=== PATIENT | female | born 1955 | race Caucasian/White ===

== ENCOUNTER 2018-03-10 15:54 | Emergency (ER) | payer OTHER ==
[2018-03-10 16:14] VITALS: BP 130/77; PULSE 68; TEMP 98.2; BMI 29.0
--- NOTE | 2018-03-10 19:24 | PDOC ---
History of Present Illness - General Chief Complaint: Injury Stated Complaint: FALL Time Seen by Provider: 03/10/18 19:11 History Source: Patient - History of Present Illness Initial Comments: 03/10/18 20:23 62 year old female 62-year-old female Currently living in assisted care facility reports that she lost balance and fell hit the buttocks complaining of right-sided rib pain and lower back pain. Patient has a history of CVA with left sided weakness. Denies fever/ chills dizziness, SOB, chest pain, diaphoresis, NV, abdominal pain Past medical history as listed Past History - Past Medical History Allergies/Adverse Reactions: Allergies Allergy/AdvReac Type Severity Reaction Status Date / Time Penicillins Allergy Verified 12/25/15 19:56 shellfish derived Allergy Verified 12/25/15 19:56 strawberry Allergy Verified 12/25/15 19:56 Home Medications: Ambulatory Orders Acetaminophen [Mapap] 500 mg PO BID PRN 03/10/18 Albuterol Sulfate [Proair Hfa] 2 puff IH QID PRN 03/10/18 Apixaban [Eliquis -] 2.5 mg PO BID 03/10/18 Ascorbic Acid [Vitamin C -] 500 mg PO DAILY 03/10/18 Atorvastatin Ca [Lipitor] 10 mg PO HS 03/10/18 Calcium Carbonate [Super Calcium] 600 mg PO BID 03/10/18 Loratadine 10 mg PO DAILY 03/10/18 Melatonin 3 mg PO HS 03/10/18 Metoprolol Tartrate 25 mg PO DAILY 03/10/18 Mometasone Furoate [Asmanex 110Mcg -] 2 inh IH DAILY 03/10/18 Olopatadine HCl 2.5 ml OP DAILY 03/10/18 Omeprazole 40 mg PO DAILY 03/10/18 Paroxetine HCl 30 mg PO DAILY 03/10/18 Promethazine HCl [Phenergan Liquid -] 5 ml PO DAILY PRN 03/10/18 Asthma: Yes CVA: Yes (left arm paralysis, left leg weakness) COPD: No HTN: Yes - Immunization History Immunization Up to Date: Yes - Suicide/Smoking/Psychosocial Hx Smoking History: Former smoker Have you smoked in the past 12 months: No If you are a former smoker, when did you quit?: 1999 Information on smoking cessation initiated: No Hx Alcohol Use: No Drug/Substance Use Hx: No Substance Use Type: None Review of Systems - Review of Systems Able to Perform ROS?: Yes Is the patient limited Arabic proficient: No Constitutional: No: Symptoms Reported, See HPI, Chills, Diaphoresis, Fever, Loss of Appetite, Malaise, Night Sweats, Weakness, Weight Stable, Unintentional Wgt. Loss, Unexplained wgt Loss, Other Musculoskeletal: Yes: Back Pain *Physical Exam - Vital Signs Last Vital Signs Temp Pulse Resp BP Pulse Ox 98.2 F 68 20 130/77 94 L 03/10/18 16:11 03/10/18 16:11 03/10/18 16:11 03/10/18 16:11 03/10/18 16:11 - Physical Exam General Appearance: Yes: Appropriately Dressed Respiratory/Chest: positive: Lungs Clear, Normal Breath Sounds, Other (right posterior chest/ rib tenderness) Gastrointestinal/Abdominal: positive: Normal Bowel Sounds, Soft Musculoskeletal: positive: Normal Inspection Extremity: positive: Normal Inspection, Normal Range of Motion Integumentary: positive: Normal Color, Dry, Warm Neurologic: positive: Fully Oriented, Alert, Normal Mood/Affect ED Treatment Course - LABORATORY CBC & Chemistry Diagram: 03/10/18 23:30 03/10/18 23:30 Progress Note - Progress Note Progress Note: A: back pain P: xray: no acute finding. official read pending cbc cmp troponin EKG will d/c home. patient has a home health aide 24 hours in the facility. *DC/Admit/Observation/Transfer Diagnosis at time of Disposition: Fall in elderly patient, Rib pain on right side Contusion, buttock Qualifiers: Encounter type: initial encounter Qualified Code(s): S30.0XXA - Contusion of lower back and pelvis, initial encounter - Discharge Dispostion Disposition: HOME - Referrals - Patient Instructions Printed Discharge Instructions: How to Prevent Falls Additional Instructions: follow up with your doctor. you may take tylenol for pain. Additional Instructions: * Please call your personal physician to report your Emergency Department visit and to report your progress, if any. * If there is no improvement in symptoms in 2 days call your physician. * Return to the Emergency Department for any worsening symptoms. - Post Discharge Activity
--- NOTE | 2018-03-10 19:47 | PDOC ---
*Physical Exam - Vital Signs Last Vital Signs Temp Pulse Resp BP Pulse Ox 98.2 F 68 20 130/77 94 L 03/10/18 16:11 03/10/18 16:11 03/10/18 16:11 03/10/18 16:11 03/10/18 16:11 ED Treatment Course - LABORATORY CBC & Chemistry Diagram: 03/10/18 23:30 03/10/18 23:30 Medical Decision Making - Medical Decision Making 03/10/18 19:46 agree with care from [facility] *DC/Admit/Observation/Transfer Diagnosis at time of Disposition: Fall in elderly patient, Rib pain on right side, Contusion, buttock - Discharge Dispostion Disposition: HOME Condition at time of disposition: Good - Referrals - Patient Instructions Printed Discharge Instructions: How to Prevent Falls Additional Instructions: follow up with your doctor. you may take tylenol for pain. Additional Instructions: * Please call your personal physician to report your Emergency Department visit and to report your progress, if any. * If there is no improvement in symptoms in 2 days call your physician. * Return to the Emergency Department for any worsening symptoms. - Post Discharge Activity
[2018-03-10 23:36] LABS: BASO % 0.5 % (0-2.0); EOS % 2.7 % (0-4.5); HEMATOCRIT 36.9 % (32.4-45.2); HEMOGLOBIN 12.7 GM/dL (10.7-15.3); MCH 31.2 pg (25.7-33.7); MCHC 34.5 g/dl (32.0-36.0); MEAN CELL VOLUME 90.2 fl (80-96); MEAN PLT VOLUME 8.4 fl (7.5-11.1); MONO % 8.3 % (3.8-10.2); NEUT % 57.5 % (42.8-82.8); PLATELET COUNT 218 K/MM3 (134-434); RBC 4.09 M/mm3 (3.60-5.2); RDW 12.6 % (11.6-15.6); WHITE BLOOD COUNT 6.3 K/mm3 (4.0-10.0)
[2018-03-10 23:56] LABS: ANION GAP 7 (8-16); BILIRUBIN,TOTAL 0.4 mg/dL (0.2-1.0); BLOOD UREA NITROGEN 18 mg/dL (7-18); CALCIUM 8.9 mg/dL (8.5-10.1); CHLORIDE 105 mmol/L (98-107); CO2 29 mmol/L (21-32); CREATININE 0.6 mg/dL (0.55-1.02); GLUCOSE,RANDOM 94 mg/dL (74-106); POTASSIUM 3.9 mmol/L (3.5-5.1); SGOT/AST 14 U/L (15-37); SGPT/ALT 19 U/L (12-78); SODIUM 141 mmol/L (136-145); TOT PROT 7.2 g/dl (6.4-8.2)
[2018-03-10 23:59] LABS: ALK PHOS 71 U/L (45-117)
[2018-03-11] MEDS ORDERED: ACETAMINOPHEN 325 MG TABLET (FP) PO ONE (00:31)
[2018-03-11] MEDS ORDERED: ACETAMINOPHEN 325 MG TABLET (FP) ONE (00:44)
--- NOTE | 2018-03-11 11:22 | EKG ---
Test Reason : Blood Pressure : / mmHG Vent. Rate : 075 BPM Atrial Rate : 075 BPM P-R Int : 138 ms QRS Dur : 082 ms QT Int : 398 ms P-R-T Axes : 041 022 034 degrees QTc Int : 444 ms NORMAL SINUS RHYTHM SEPTAL INFARCT , AGE UNDETERMINED ABNORMAL ECG WHEN COMPARED WITH ECG OF 25-DEC-2015 20:14, SEPTAL INFARCT IS NOW PRESENT Confirmed by NATHAN AGARWAL MD ([id number]) on 03/11/2018 11:21:33 AM Referred By: Confirmed By:NATHAN AGARWAL MD
== END 2018-03-11 02:35 | disposition home or self-care (01) ==
LOC: JER 15:54
DX: S30.0XXA Contusion of lower back and pelvis, initial encounter (principal); R07.81 Pleurodynia; Z86.73 Personal history of transient ischemic attack (TIA), and cerebral infarction without residual deficits; J45.909 Unspecified asthma, uncomplicated; Z87.891 Personal history of nicotine dependence; I10 Essential (primary) hypertension; W18.39XA Other fall on same level, initial encounter; Y93.89 Activity, other specified; Y92.9 Unspecified place or not applicable
CPT/HCPCS: 36415; 71045-TC-FY; 71101-TC-RT-FY; 72100-TC-FY; 73523-TC-FY; 80053; 84484; 85025; 93005; 93010; 99282-25

== ENCOUNTER 2018-08-28 19:02 | Emergency (ER) | payer OTHER ==
[2018-08-28 19:16] VITALS: BMI 31.1
--- NOTE | 2018-08-28 19:23 | PDOC ---
History of Present Illness - General Chief Complaint: Toothache Stated Complaint: pain History Source: Patient - History of Present Illness Initial Comments: The patient is a 63F who presents for evaluation of R facial swelling for 1 day. The patient states that she first noticed the swelling yesterday which has since progressed. She now reports overlying redness, pain, and subjective fevers. She took Tylenol at home with little relief. She denies ever having had this before. She denies injury or trauma to her face. She denies changes in vision, pain or difficulty swallowing, chest pain, trouble breathing, abdominal pain, N/V/C/D, or changes in sensation. 08/28/18 19:23 Past History - Past Medical History Allergies/Adverse Reactions: Allergies Allergy/AdvReac Type Severity Reaction Status Date / Time Penicillins Allergy Verified 08/28/18 19:14 shellfish derived Allergy Verified 08/28/18 19:14 strawberry Allergy Verified 08/28/18 19:14 Home Medications: Ambulatory Orders Acetaminophen [Mapap] 500 mg PO TID PRN 03/10/18 Apixaban [Eliquis -] 2.5 mg PO BID 03/10/18 Ascorbic Acid [Vitamin C -] 500 mg PO DAILY 03/10/18 Atorvastatin Ca [Lipitor] 10 mg PO HS 03/10/18 Calcium Carbonate [Super Calcium] 600 mg PO BID 03/10/18 Loratadine 10 mg PO DAILY 03/10/18 Melatonin 3 mg PO HS 03/10/18 Metoprolol Tartrate 25 mg PO DAILY 03/10/18 Olopatadine HCl 2.5 ml OP DAILY 03/10/18 Omeprazole 40 mg PO DAILY 03/10/18 Paroxetine HCl 30 mg PO DAILY 03/10/18 Promethazine HCl [Phenergan Liquid -] 5 ml PO DAILY PRN 03/10/18 Albuterol Sulfate Inhaler - [Ventolin Hfa Inhaler -] 1 - 2 inh PO QID PRN Mometasone Furoate 17 gm NS DAILY 08/28/18 Asthma: Yes CVA: Yes (left arm paralysis, left leg weakness) COPD: No GI Disorders: (Gerd) HTN: Yes - Immunization History Immunization Up to Date: Yes - Suicide/Smoking/Psychosocial Hx Smoking History: Former smoker Have you smoked in the past 12 months: No If you are a former smoker, when did you quit?: 1999 Information on smoking cessation initiated: No Hx Alcohol Use: No Drug/Substance Use Hx: No Substance Use Type: None Review of Systems - Review of Systems Able to Perform ROS?: Yes Comments:: GENERAL/CONSTITUTIONAL: +subjective fever. No weakness HEAD, EYES, EARS, NOSE AND THROAT: No change in vision. No ear pain or discharge CARDIOVASCULAR: No chest pain or shortness of breath RESPIRATORY: No cough, wheezing, or hemoptysis GASTROINTESTINAL: No nausea, vomiting, diarrhea or constipation GENITOURINARY: No dysuria, frequency, or change in urination MUSCULOSKELETAL: No joint or muscle swelling or pain. No neck or back pain NEUROLOGIC: No headache, vertigo, loss of consciousness, or change in strength/ sensation ENDOCRINE: No increased thirst. No abnormal weight change HEMATOLOGIC/LYMPHATIC: +Eliquis 2/2 hx of stroke ALLERGIC/IMMUNOLOGIC: No hives or skin allergy 08/28/18 23:22 Is the patient limited Greek proficient: No *Physical Exam - Vital Signs Last Vital Signs Temp Pulse Resp BP Pulse Ox 99.3 F 83 20 153/84 97 08/28/18 19:05 08/28/18 19:05 08/28/18 19:05 08/28/18 19:05 08/28/18 19:05 - Physical Exam Comments: GENERAL: Awake, alert, and fully oriented, in no acute distress HEAD: R mandibular abscess with overlying erythema, no skin defect or drainage; TTP and fluctuance palpated EYES: PERRL, EOMI, sclera anicteric, conjunctiva clear ENT: Hearing grossly normal, nares patent, oropharynx clear without exudates. Intra-oral swelling noted over buccal mucosa on R. No intra-oral purulence or defect observed NECK: Normal ROM, supple LUNGS: Mild wheeze heard and patient appears w/ mild increased work of breathing s/p short movements; otherwise saturating well on room air, no cough HEART:Regular rate and rhythm, normal S1 and S2, no murmurs appreciated, peripheral pulses normal and equal bilaterally ABDOMEN: Soft, nontender, normoactive bowel sounds. No guarding, no rebound EXTREMITIES : LUE contracture at elbow and wrist; L sided hemiparesis as residual deficit from stroke. Per patient at baseline. NEUROLOGICAL: Cranial nerves II through XII grossly intact. Normal speech; L sided decreased sensation (baseline per pt) 08/29/18 07:04 ED Treatment Course - LABORATORY CBC & Chemistry Diagram: 08/28/18 20:35 08/28/18 20:35 Medical Decision Making - Medical Decision Making The patient is a 63F w/ a history of CVA (L hemiparesis), HTN, and HLD who presents for evaluation of R facial swelling concerning for glandular inflammation v abscess ED Course CMP, CBC, Lactate, Blood Cx CT Face and Neck POCUS significant for fluid collection over R mandible v glandular fluid collection Clindamycin 600mg IV once Patient not able to cooperate w/ CT study Will give Ativan 1mg IV once CT face significant for submandibular abscess -Will transfer to [facility] for OMFS evaluation for drainage of abscess -Transfer accepted by Dr. eJf Ceron; Resident taking sign out: Mukesh Ch Transfer discussed with patient who verbalized understanding for reasoning and need for transfer Transfer to be arranged by [facility] Dispo: Transferred 08/28/18 23:36 *DC/Admit/Observation/Transfer Diagnosis at time of Disposition: Facial abscess - Discharge Dispostion Disposition: TRANSFER ACUTE CARE/OTHER HOSP Condition at time of disposition: Good Decision to Admit order: No - Referrals - Patient Instructions - Post Discharge Activity
--- NOTE | 2018-08-28 19:53 | PDOC ---
Attending Attestation - Resident Resident Name: Perfecto Charles - ED Attending Attestation I have performed the following: I have examined & evaluated the patient, The case was reviewed & discussed with the resident, I agree w/resident's findings & plan
[2018-08-28 20:52] LABS: HEMOGLOBIN 12.9 GM/dL (10.7-15.3); MCH 30.6 pg (25.7-33.7); MEAN CELL VOLUME 89.9 fl (80-96); MEAN PLT VOLUME 8.2 fl (7.5-11.1); PLATELET COUNT 259 K/MM3 (134-434); RBC 4.22 M/mm3 (3.60-5.2); RDW 12.5 % (11.6-15.6)
[2018-08-28 21:37] LABS: ALK PHOS 91 U/L (45-117); ANION GAP 6 MMOL/L (8-16); BILIRUBIN,TOTAL 0.4 mg/dL (0.2-1); BLOOD UREA NITROGEN 17 mg/dL (7-18); CALCIUM 9.3 mg/dL (8.5-10.1); CHLORIDE 104 mmol/L (98-107); CO2 30 mmol/L (21-32); CREATININE 0.6 mg/dL (0.55-1.3); GLUCOSE,RANDOM 105 mg/dL (74-106); POTASSIUM 4.3 mmol/L (3.5-5.1); SGOT/AST 24 U/L (15-37); SGPT/ALT 27 U/L (13-61); SODIUM 140 mmol/L (136-145); TOT PROT 7.4 g/dl (6.4-8.2)
--- NOTE | 2018-08-28 21:37 | PDOC ---
Attending Attestation - Resident Resident Name: Perfecto Charles - ED Attending Attestation I have performed the following: I have examined & evaluated the patient, The case was reviewed & discussed with the resident, I agree w/resident's findings & plan, Exceptions are as noted - HPI HPI: 08/28/18 21:41 63 yo F with h/o hld, htn, prior cva with residual left sided hemiparesis here today with right sided lower jaw swelling. noted a little swelling yesterday. denies, f/does report subjective chills. took tylenol at 4 pm. no recent dental procedure. no h/o stones, no difficulty swallowing. no other complaints. no cough, no sob. - Physicial Exam PE: 08/28/18 21:43 awake alert . right lower mandible with significant submandibular swelling, erythema and warmth. palpable induration buccal side anterilr lateral gum line surround right lower posterior molar. no trismus. anterior lower lip swelling. no stridor. lungs clear bilateral. heart rrr no mrg. abd soft nt. eryhtema to skin right lower jaw line. - Medical Decision Making 08/28/18 21:44 differential sialoadenitis, abcess, peridontal abscess. swelling does not cross midline however significant lip swelling . will treat with iv clindamycin , ct jaw mandible neck. pt unable to have iv contrast. septic labs workup. pain control as needed. will possible require transfer for i & D abscess. 08/29/18 00:21 pt unable to stay still for ct scan. given 1 mg ativan to aid with ct scan.
[2018-08-28] MEDS ORDERED: ALBUTEROL SO4 2.5/IPRATROPIUM 0.5 INH SOL 3 ML VIAL.NEB. NEB ONE ×2 (22:34→22:39)
[2018-08-28] MEDS ORDERED: CLINDAMYCIN 600MG PREMIX IVPB 600 MG/50 ML BAG IVPB ONE ×2 (23:41→23:50)
[2018-08-28] MEDS ORDERED: LORazepam 2 MG/ML SDV VIAL ONE (23:50)
[2018-08-29 02:39] VITALS: BP 133/69; PULSE 102; TEMP 100.5
== END 2018-08-29 02:40 | disposition short-term general hospital (02) ==
LOC: JER 19:02
PROC: 3E0F7GC Introduction of Other Therapeutic Substance into Respiratory Tract, Via Natural or Artificial Opening (ICD-10-PCS; principal; 2018-08-28)
PROC: 3E03329 Introduction of Other Anti-infective into Peripheral Vein, Percutaneous Approach (ICD-10-PCS; 2018-08-28)
PROC: 3E033NZ Introduction of Analgesics, Hypnotics, Sedatives into Peripheral Vein, Percutaneous Approach (ICD-10-PCS; 2018-08-28)
DX: L02.01 Cutaneous abscess of face (principal); I10 Essential (primary) hypertension; K21.9 Gastro-esophageal reflux disease without esophagitis; I69.854 Hemiplegia and hemiparesis following other cerebrovascular disease affecting left non-dominant side; Z79.01 Long term (current) use of anticoagulants
CPT/HCPCS: 36415; 70486-TC; 70490-TC; 80053; 83605; 85027; 87040; 94640; 96365; 96375; 99283-25; J7620

== ENCOUNTER 2019-03-14 08:45 | Emergency (ER) | payer OTHER ==
[2019-03-14 08:54] VITALS: BP 139/103; PULSE 88; TEMP 97.7; BMI 314.5
--- NOTE | 2019-03-14 09:03 | PDOC ---
History of Present Illness - General Stated Complaint: FALL Time Seen by Provider: 03/14/19 08:52 History Source: Patient - History of Present Illness Initial Comments: 03/14/19 09:06 The patient is a 63 year old female with a PMH of CVA (s/p R sided hemiparesis) , HTN and Asthma () who was BIBEMS after a fall this morning @ 7:20 a.m. Patient states she was sitting up on the side of the bed attempting to put on her socks when she fell forward hitting her head. Denies any LOC, pre fall chest pain, shortness of breath, lightheadedness, palpitations. States she screamed and an aide came within 1-2 minutes however she remained on the ground until EMS arrived about 30 minutes later. Allergy: Penicillin Past History - Past Medical History Allergies/Adverse Reactions: Allergies Allergy/AdvReac Type Severity Reaction Status Date / Time Penicillins Allergy Verified 03/14/19 08:52 shellfish derived Allergy Verified 03/14/19 08:52 strawberry Allergy Verified 03/14/19 08:52 Home Medications: Ambulatory Orders Acetaminophen [Mapap] 500 mg PO TID PRN 03/10/18 Apixaban [Eliquis -] 2.5 mg PO BID 03/10/18 Ascorbic Acid [Vitamin C -] 500 mg PO DAILY 03/10/18 Atorvastatin Ca [Lipitor] 10 mg PO HS 03/10/18 Calcium Carbonate [Super Calcium] 600 mg PO BID 03/10/18 Loratadine 10 mg PO DAILY 03/10/18 Melatonin 3 mg PO HS 03/10/18 Metoprolol Tartrate 25 mg PO DAILY 03/10/18 Olopatadine HCl 2.5 ml OP DAILY 03/10/18 Omeprazole 40 mg PO DAILY 03/10/18 Paroxetine HCl 30 mg PO DAILY 03/10/18 Promethazine HCl [Phenergan Liquid -] 5 ml PO DAILY PRN 03/10/18 Albuterol Sulfate Inhaler - [Ventolin Hfa Inhaler -] 1 - 2 inh PO QID PRN Mometasone Furoate 17 gm NS DAILY 08/28/18 Ferrous Sulfate [Iron] 325 mg PO DAILY 03/14/19 Asthma: Yes CVA: Yes (left arm paralysis, left leg weakness) COPD: No GI Disorders: (Gerd) HTN: Yes - Immunization History Immunization Up to Date: Yes - Suicide/Smoking/Psychosocial Hx Smoking History: Former smoker Have you smoked in the past 12 months: No If you are a former smoker, when did you quit?: 1999 Information on smoking cessation initiated: No Hx Alcohol Use: No Drug/Substance Use Hx: No Substance Use Type: None Review of Systems - Review of Systems Constitutional: No: Chills, Fever HEENTM: No: Recent change in vision Respiratory: No: Cough, Shortness of Breath Cardiac (ROS): No: Chest Pain, Lightheadedness, Palpitations, Syncope ABD/GI: No: Constipated, Diarrhea, Nausea, Vomiting *Physical Exam - Vital Signs Last Vital Signs Temp Pulse Resp BP Pulse Ox 97.7 F 88 18 139/103 H 95 03/14/19 08:52 03/14/19 08:52 03/14/19 08:52 03/14/19 08:52 03/14/19 08:52 - Physical Exam General Appearance: Yes: Nourished, Obese HEENT: positive: Normal Voice, Hearing Grossly Normal Neck: positive: Trachea midline, Supple, Other (C-collar in place) Respiratory/Chest: positive: Lungs Clear, Normal Breath Sounds Cardiovascular: positive: S1, S2. negative: Edema, JVD Vascular Pulses: Dorsalis-Pedis (R): 2+, Doralis-Pedis (L): 2+ Gastrointestinal/Abdominal: positive: Normal Bowel Sounds, Soft. negative: Guarding, Rebound, Tenderness Extremity: positive: Normal Capillary Refill, Normal Inspection Integumentary: positive: Normal Color, Dry, Warm Neurologic: positive: Fully Oriented, Alert ED Treatment Course - LABORATORY CBC & Chemistry Diagram: 03/14/19 10:30 03/14/19 10:30 Medical Decision Making - Medical Decision Making 03/14/19 09:16 63 year old female s/p likely mechanical fall, on Eliquis. Hypertensive (136/ 103), repeat BP Will obtain Head CT, C-spine. As patient has clinical story c /w mechanical fall will obtain Head CT as patient on NOAC. Boostrix. Reassess 03/14/19 11:[address] and C-spine negative Booxtrix and D/c to Patient reassessed @ bedside, requesting food. Counseled on return precautions and d/c to [facility] I discussed the physical exam findings and final diagnoses with the patient. I answered all the patient's questions. The patient felt satisfied with the care received and will return to the Emergency Department with any new/worsening/ concerning symptoms. *DC/Admit/Observation/Transfer Diagnosis at time of Disposition: Fall - Discharge Dispostion Disposition: [facility] Condition at time of disposition: Good - Referrals Referrals: Julien Roth MD [Primary Care Provider] - - Patient Instructions Additional Instructions: You can take Tylenol (up to 4000 mg daily) every 4-6 hours for headaches. Return to the Emergency Department for any new/worsening/concerning symptoms. - Post Discharge Activity
[2019-03-14 10:51] LABS: BASO % 0.6 % (0-2.0); EOS % 2.3 % (0-4.5); HEMATOCRIT 34.1 % (32.4-45.2); HEMOGLOBIN 11.6 GM/dL (10.7-15.3); LYMPH % 17.9 % (8-40); MCH 30.3 pg (25.7-33.7); MEAN CELL VOLUME 89.2 fl (80-96); MEAN PLT VOLUME 8.7 fl (7.5-11.1); NEUT % 72.2 % (42.8-82.8); PLATELET COUNT 280 K/MM3 (134-434); RBC 3.82 M/mm3 (3.60-5.2); WHITE BLOOD COUNT 5.9 K/mm3 (4.0-10.0)
[2019-03-14 11:04] LABS: INR 1.02 (0.83-1.09)
[2019-03-14 11:07] LABS: ACTIVATED PTT 33.3 SECONDS (25.2-36.5)
[2019-03-14] MEDS ORDERED: DIPHTH,PERTUSS(ACELL),TET 0.5 ML DISP.SYRIN IM ONE ×2 (11:27→13:27)
[2019-03-14 11:30] LABS: ALBUMIN 3.7 g/dl (3.4-5.0); ALK PHOS 77 U/L (45-117); ANION GAP 5 MMOL/L (8-16); BILIRUBIN,TOTAL 0.3 mg/dL (0.2-1); BLOOD UREA NITROGEN 17 mg/dL (7-18); CALCIUM 9.1 mg/dL (8.5-10.1); CHLORIDE 105 mmol/L (98-107); CO2 29 mmol/L (21-32); CREATININE 0.5 mg/dL (0.55-1.3); GLUCOSE,RANDOM 104 mg/dL (74-106); SGOT/AST 16 U/L (15-37); SGPT/ALT 21 U/L (13-61); SODIUM 139 mmol/L (136-145); TOT PROT 7.1 g/dl (6.4-8.2)
--- NOTE | 2019-03-14 13:50 | PDOC ---
Documentation entered by Radha Garcia SCRIBE, acting as scribe for Fozia Hilario MD. Fozia Hilario MD: This documentation has been prepared by the Radha ponce Sammi, SCRIBE, under my direction and personally reviewed by me in its entirety. I confirm that the documentation accurately reflects all work, treatment, procedures, and medical decision making performed by me. Attending Attestation - Resident Resident Name: Helen Hood - ED Attending Attestation I have performed the following: I have examined & evaluated the patient, The case was reviewed & discussed with the resident, I agree w/resident's findings & plan, Exceptions are as noted - HPI HPI: 03/14/19 09:23 The patient is a 63 year old female, with a significant PMH of CVA (with residual L sided hemiparesis), HTN, and asthma, who was BIBA to the emergency department s/p fall around 7:20am this morning. The patient reports she was sitting on her bed when her aide left and tried to put her socks on without help , when she fell forward hitting her head, no LOC. Patient notes the aide came once she heard the fall. She reports remaining on the floor until the ambulance came for about 30 mins. Denies any other injuries. Does not remember last tetanus. Denies preceding dizziness, headache, palpitations, CP, SOB. Denies fever, chills, nausea, vomit, diarrhea and constipation. Denies dysuria, frequency, urgency and hematuria. Allergies: Penicillin PCP: Dr. Roth - Physicial Exam PE: 03/14/19 13:43 GENERAL: Awake, alert, and fully oriented, in no acute distress HEAD: +L forehead hematoma with superficial abrasion. No bony ttp. EYES: PERRLA, EOMI, sclera anicteric, conjunctiva clear ENT: Auricles normal inspection, hearing grossly normal, nares patent, oropharynx clear without exudates. Moist mucosa NECK: Normal ROM, supple, no lymphadenopathy, JVD, or masses BACK: No midline cervical, thoracic, lumbar ttp LUNGS: Breath sounds equal, clear to auscultation bilaterally. No wheezes, and no crackles HEART: Regular rate and rhythm, normal S1 and S2, no murmurs, rubs or gallops ABDOMEN: Soft, nontender, normoactive bowel sounds. No guarding, no rebound. No masses EXTREMITIES: Normal range of motion, no edema. No cords, erythema, or tenderness. No deformities. WWP x4. NEUROLOGICAL: Normal speech, +LUE and LLE flaccid, contracted SKIN: Warm, Dry, normal turgor, no rashes or lesions noted. - Medical Decision Making 03/14/19 13:46 63yo F presents to the ED after a mechanical fall out of bed when trying to put socks on. +headstrike, no LOC. Pt is no complaints other than mild headache. Vitals unremarkable. Exam at neuro baseline, hematoma to L forehead, no other evidence of trauma from head to toe CTH/CT c-spine negative Pt feels well, requests DC back to facility Pt is clinically stable for DC home I discussed the physical exam findings, ancillary test results and final diagnoses with the patient. I answered all of the patient's questions. The patient was satisfied with the care received and felt comfortable with the discharge plan and treatment plan. The patient will call their primary care physician within 24 hours to arrange follow-up and will return to the Emergency Department with any new, persistent or worsening symptoms. Heart Score/ECG Review #1 03/14/19 13:49 Twelve-lead EKG was performed and reviewed by me. Normal sinus rhythm, rate 81. Normal axis. No ST elevations
--- NOTE | 2019-03-14 14:20 | EKG ---
Test Reason : Blood Pressure : / mmHG Vent. Rate : 081 BPM Atrial Rate : 081 BPM P-R Int : 146 ms QRS Dur : 076 ms QT Int : 380 ms P-R-T Axes : 044 037 053 degrees QTc Int : 441 ms NORMAL SINUS RHYTHM NORMAL ECG WHEN COMPARED WITH ECG OF 11-MAR-2018 00:43, CRITERIA FOR SEPTAL INFARCT ARE NO LONGER PRESENT Confirmed by RONNI KUMAR MD ([id number]) on 03/14/2019 2:19:38 PM Referred By: Confirmed By:RONNI KUMAR MD
== END 2019-03-14 14:30 ==
LOC: JER 08:45
PROC: 3E0234Z Introduction of Serum, Toxoid and Vaccine into Muscle, Percutaneous Approach (ICD-10-PCS; principal; 2019-03-14)
DX: S00.83XA Contusion of other part of head, initial encounter (principal); S00.81XA Abrasion of other part of head, initial encounter; W06.XXXA Fall from bed, initial encounter; Y93.89 Activity, other specified; Y92.122 Bedroom in nursing home as the place of occurrence of the external cause; Y99.8 Other external cause status; I10 Essential (primary) hypertension; J45.909 Unspecified asthma, uncomplicated; K21.9 Gastro-esophageal reflux disease without esophagitis; I69.854 Hemiplegia and hemiparesis following other cerebrovascular disease affecting left non-dominant side; Z87.891 Personal history of nicotine dependence; Z79.01 Long term (current) use of anticoagulants; Z88.0 Allergy status to penicillin
CPT/HCPCS: 36415; 70450-TC; 72125-TC; 80053; 85025; 85610; 85730; 90471; 90715; 93005; 93010; 99282-25

== ENCOUNTER 2019-07-12 11:34 | Emergency (ER) | payer OTHER ==
--- NOTE | 2019-07-12 12:15 | PDOC ---
History of Present Illness - General Chief Complaint: Injury Stated Complaint: FALL Time Seen by Provider: 07/12/19 11:47 History Source: Patient, EMS Exam Limitations: No Limitations - History of Present Illness Initial Comments: 07/12/19 12:09 63 year old female with a PMH of CVA (s/p Left sided hemiparesis), HTN and Asthma who was BIBEMS from [facility] after a fall this morning out of wheelchair when her cup fell out and she reached over. she fell forward and landed on right side. Denies any LOC, prodromal chest pain, shortness of breath, lightheadedness, dizziness, palpitations. she is on eliquis for CVA baseline with left sided hemiplegia, left foot drop requiring brace and wheelchair dependence Past History - Past Medical History Allergies/Adverse Reactions: Allergies Allergy/AdvReac Type Severity Reaction Status Date / Time Penicillins Allergy Verified 07/12/19 11:37 shellfish derived Allergy Verified 07/12/19 11:37 strawberry Allergy Verified 07/12/19 11:37 Home Medications: Ambulatory Orders Acetaminophen [Mapap] 500 mg PO TID PRN 03/10/18 Apixaban [Eliquis -] 2.5 mg PO BID 03/10/18 Ascorbic Acid [Vitamin C -] 500 mg PO DAILY 03/10/18 Atorvastatin Ca [Lipitor] 10 mg PO HS 03/10/18 Calcium Carbonate [Super Calcium] 600 mg PO BID 03/10/18 Loratadine 10 mg PO DAILY 03/10/18 Melatonin 3 mg PO HS 03/10/18 Metoprolol Tartrate 25 mg PO DAILY 03/10/18 Olopatadine HCl 2.5 ml OP DAILY 03/10/18 Omeprazole 40 mg PO DAILY 03/10/18 Paroxetine HCl 30 mg PO DAILY 03/10/18 Promethazine HCl [Phenergan Liquid -] 5 ml PO DAILY PRN 03/10/18 Albuterol Sulfate Inhaler - [Ventolin Hfa Inhaler -] 1 - 2 inh PO QID PRN Mometasone Furoate 17 gm NS DAILY 08/28/18 Ferrous Sulfate [Iron] 325 mg PO DAILY 03/14/19 Asthma: Yes CVA: Yes (left arm paralysis, left leg weakness) COPD: No GI Disorders: (Gerd) HTN: Yes - Immunization History Immunization Up to Date: Yes - Suicide/Smoking/Psychosocial Hx Smoking History: Former smoker Have you smoked in the past 12 months: No If you are a former smoker, when did you quit?: 1999 Hx Alcohol Use: No Drug/Substance Use Hx: No Substance Use Type: None Review of Systems - Review of Systems Able to Perform ROS?: Yes Comments:: 07/12/19 12:11 Constitutional: no fevers or chills. HEENT: no headache or dizziness. No congestion. No visual/hearing disturbances. CVS: no chest pain or syncope. Resp: no sob. No cough. Gastrointestinal: no abdominal pain, nausea or vomiting. Genitourinary: no urinary sx, hematuria. no incontinence or retention. MUSCULOSKELETAL: No joint pain and swelling. No neck or back pain. SKIN: no redness or skin changes, no discharge, no rash. No wounds. Hematologic: no easy bruising/bleeding. NEUROLOGIC: No headache, dizziness, LOC or altered mental status. No numbness or tingling. +chronic hemiparesis Allergic/Immunologic: medication and food allergies All other systems reviewed and negative, or as documented in HPI. *Physical Exam - Physical Exam Comments: 07/12/19 12:12 General: GCS 15 NAD, well appearing HEENT: NCAT, PERRL, EOMI. Airway intact. No battles sign or raccoon eyes. Dentition intact. No e/o septal hematoma, nasal bridge stable. Neck: neck supple, no midline C spine tenderness or deformity, ROM intact. No anterior mass or crepitus, trachea midline. Resp: Lungs clear bilaterally, no respiratory distress. Chest: no clavicle or chest wall tenderness or crepitus CVS: RRR, 2+ pulses throughout. Abdomen: Abdomen soft, nontender, nondistended. Back: Back nontender, no midline spinal tenderness along cervical/thoracic/ lumbar spine, FROM, no stepoffs. MSK: Pelvis stable, Extremities symmetric, no focal areas of tenderness or deformities, proximal and distally; no pain on axial loading. FROM in all extrem. +contractures to LUE and LLE. Neuro: Alert, oriented appropriately. CN II-XII grossly symmetric and intact. baseline dysarthric, +chronic hemiplegia to LUE and LLE, +chronic left foot drop in brace. wheelchair dependent. Skin: intact, normal color and well perfused. +scratch lam/rash on right buttock Heart Score/ECG Review #1 ECG reviewed & interpreted by me at: 11:55 General ECG Interpretation: Sinus Rhythm, Normal Rate, Normal Intervals Compared to previous ECG there are: No significant change ED Treatment Course - RADIOLOGY Radiology Studies Ordered: Category Date Time Status CERVICAL SPINE CT W/O CONTR [CT] Stat CT Scan 07/12/19 12:[address] WITHOUT CONTRAST [CT] Stat CT Scan 07/12/19 12:08 Ordered Medical Decision Making - Medical Decision Making 07/12/19 12:15 hpi as documented prior notes reviewed, GCS 15 VS reviewed, wnl, normotensive, no complaints of pain Vital Signs Temp Pulse Resp BP Pulse Ox 98.6 F 82 16 115/61 95 07/12/19 11:35 07/12/19 11:35 07/12/19 11:35 07/12/19 11:35 07/12/19 11:35 Trauma ddx: ICH, SDH/ EDH, C spine injury/strain, extremity sprain/fracture, pelvis fracture. MSK contusion, msk spasms. Rib fractures. Clinically doubt Intra abdominal and thoracic injuries/bleed Trauma Neg: No evidence of skull fracture, intracranial bleed, dental trauma, clinically doubt cervical, thoracic, or vertebral fracture or subluxation, no suspicion of thoracic, abdominal, pelvic or extremity injury by exam. no complaints of pain. external 2ndary survey unremarkable wheelchair dependent, chronic LUE And LLE hemiplegia/contractures. asymptomatic. CT head neg for acute bleed/injury, right MCA infarct and chronic encephalomalacia. CT C spine degenerative disease, no acute fx/subluxation. some back pain here lying on stretcher, give tylenol Pt to be discharged in stable condition via ambulance back to [facility]. Patient made aware of clinical impression, treatment recommendations and disposition plan, return precautions discussed (including but not limited to new or persistent/worsening symptoms, pain, fevers, or signs of infection, chest pain, respiratory distress, inability to tolerate oral intake, dehydration, syncope, or neurologic changes). Follow up with PMD Dr Baltazar as recommended, follow up information provided, take medications as instructed for duration of time. continue with supportive care, avoid triggers and precipitants. All questions answered to patient's satisfaction and expressed understanding and comfort with this. At the time of discharge, the patient is alert, clinically improved, tolerating po and verbalizes understanding of instructions, satisfied with the care received and felt comfortable with the plan. Patient does not suffer from an acute life- threatening medical condition at this time and is safe for outpatient follow- up. 07/12/19 12:15 07/12/19 14:05 07/12/19 15:42 *DC/Admit/Observation/Transfer Diagnosis at time of Disposition: Fall Qualifiers: Encounter type: initial encounter Qualified Code(s): W19.XXXA - Unspecified fall, initial encounter - Discharge Dispostion Disposition: HOME Condition at time of disposition: Good Decision to Admit order: No - Referrals Referrals: Julien Roth MD [Primary Care Provider] - - Patient Instructions Printed Discharge Instructions: How to Prevent Falls Additional Instructions: FALL PREVENTION AT HOME with your wheelchair. WHAT YOU NEED TO KNOW There are many different factors that can increase your risk of falls. Falls can happen any time, but the majority of them occur in the home. Fall prevention includes ways to make your home and other areas safer. It also includes ways you can move more carefully to prevent a fall. Health conditions that cause changes in your blood pressure, vision, or muscle strength and coordination may increase your risk for falls. Medicines, including anesthesia, may increase your risk for falls if they make you dizzy, weak, or sleepy. FALL PREVENTION TIPS Stand or sit up slowly. This may help you keep your balance and prevent falls. Do not walk and talk at the same time. Concentrate on the task of walking and continue the conversation after you've reached a safe place. Wear shoes that fit well and have soles that white sugar syrup operator. Wear shoes both inside and outside. Use slippers with good white sugar syrup operator. Avoid shoes with high heels. Use assistive devices as directed. Your healthcare provider may suggest that you use a cane or walker to help you keep you balance. Be sure you have adequate lighting throughout your house. Keep paths clear. Remove books, shoes and other objects from walkways and stairs. Keep cords for telephones and lamps out of the way so you dont need to walk over them. Remove small rugs or secure them with double-sided tape. This will prevent you from tripping. Use a nightlight when getting out of bed at night. Stay active to maintain overall strength and endurance. Know your limitations. If there is a task you can not complete with ease, do not risk a fall by trying to complete it. Call 911 or have someone else call if: You have fallen and are unconscious You have fallen and cannot move part of your body Contact your healthcare provider if: You have fallen and have pain or a headache You have questions or concerns about your condition or care. - Post Discharge Activity
[2019-07-12 12:18] VITALS: BMI 33.3
[2019-07-12] MEDS ORDERED: ACETAMINOPHEN 325 MG TABLET (FP) PO ONE (15:43)
[2019-07-12] MEDS ORDERED: ACETAMINOPHEN 325 MG TABLET (FP) ONE (15:45)
[2019-07-12 18:31] VITALS: BP 115/75; PULSE 72; TEMP 98.1
--- NOTE | 2019-07-14 11:39 | EKG ---
Test Reason : Blood Pressure : / mmHG Vent. Rate : 076 BPM Atrial Rate : 076 BPM P-R Int : 148 ms QRS Dur : 076 ms QT Int : 388 ms P-R-T Axes : 034 025 039 degrees QTc Int : 436 ms NORMAL SINUS RHYTHM NORMAL ECG WHEN COMPARED WITH ECG OF 14-MAR-2019 09:16, NO SIGNIFICANT CHANGE WAS FOUND Confirmed by NATHAN AGARWAL MD ([id number]) on 07/14/2019 11:38:46 AM Referred By: Confirmed By:NATHAN AGARWAL MD
== END 2019-07-12 17:10 | disposition home or self-care (01) ==
LOC: JER 11:34
DX: Z04.3 Encounter for examination and observation following other accident (principal); W05.0XXA Fall from non-moving wheelchair, initial encounter; Y93.89 Activity, other specified; Y92.099 Unspecified place in other non-institutional residence as the place of occurrence of the external cause; Z87.891 Personal history of nicotine dependence; I10 Essential (primary) hypertension; K21.9 Gastro-esophageal reflux disease without esophagitis; Z86.73 Personal history of transient ischemic attack (TIA), and cerebral infarction without residual deficits; J45.909 Unspecified asthma, uncomplicated
CPT/HCPCS: 70450-TC; 72125-TC; 93005; 93010; 99282-25

== ENCOUNTER 2019-07-23 23:28 | Emergency (ER) | payer OTHER | END 2019-07-24 03:46 | disposition home or self-care (01) | LOC: JER 23:28 ==

== ENCOUNTER 2019-07-24 17:11 | Inpatient (IN) | payer OTHER ==
[2019-07-24] MEDS ORDERED: ACETAMINOPHEN 1000 MG/100 ML VIAL (NON FORMULARY) IVPB ONE (18:29)
--- NOTE | 2019-07-24 18:44 | PDOC ---
Documentation entered by Florencio Estrada SCRIBE, acting as scribe for Behzad Arshad MD. Behzad Arshad MD: This documentation has been prepared by the Sean ponce Nirvannie, SCRIBE, under my direction and personally reviewed by me in its entirety. I confirm that the documentation accurately reflects all work, treatment, procedures, and medical decision making performed by me. Attending Attestation - Resident Resident Name: Fermin Vyas - ED Attending Attestation I have performed the following: I have examined & evaluated the patient, The case was reviewed & discussed with the resident, I agree w/resident's findings & plan, Exceptions are as noted - HPI HPI: 07/24/19 18:30 63 F with h/o HTN, asthma, CVA (w/residual L-sided hemiparesis on eliquis) presenting to ED with L 4th digit swelling and bleeding. Pt was seen here last night for similar problem. Per pt, she injured her hand 3 weeks ago when she hit it against something. It subsequently became progressively more swollen. Last night, pt presented to ED because the swelling made it impossible for her to remove her ring. The ring was cut off, and pt was found to have a large ulcer underneath her ring with surrounding swelling. Pt was started on levaquin and discharged back to long term. Today, after sleeping, pt awoke with bleeding from the ulcer, prompting her to come to the ED. Pt denies F/C. Denies purulent drainage. - Physicial Exam PE: 07/24/19 18:36 "GENERAL: Awake, alert, and fully oriented, in no acute distress. HEAD: No signs of trauma EYES: PERRLA, EOMI, sclera anicteric, conjunctiva clear ENT: Auricles normal inspection, hearing grossly normal, nares patent, oropharynx clear without exudates. Moist mucosa NECK: Nontender, no stepoffs, Normal ROM, supple, no lymphadenopathy, JVD, or masses LUNGS: Breath sounds equal, clear to auscultation bilaterally. No wheezes, and no crackles HEART: Regular rate and rhythm, normal S1 and S2, no murmurs, rubs or gallops ABDOMEN: Soft, nontender, normoactive bowel sounds. No guarding, no rebound. No masses EXTREMITIES: + L 4th digit with significant edema, + ulcer at palmar base of 4th digit with serosanguinous drainage NEUROLOGICAL: Cranial nerves II through XII intact. 5/5 strength and sensation in all extremities, Normal speech, normal gait, normal cerebellar function SKIN: Warm, Dry, normal turgor, no rashes or lesions noted. - Medical Decision Making 07/24/19 18:37 63 F with infected ulcer at base of L 4th digit. XRs obtained last night limited due to pt's contractures. - CT L hand - IV abx - Admit
[2019-07-24] MEDS ORDERED: ACETAMINOPHEN INJECTION 100 ML IVPB ONE (18:49)
--- NOTE | 2019-07-24 19:10 | PDOC ---
History of Present Illness - General Chief Complaint: Wound Stated Complaint: LEFT ARM PAIN Time Seen by Provider: 07/24/19 17:36 History Source: Patient Exam Limitations: No Limitations - History of Present Illness Initial Comments: 07/24/19 19:05 Laura Haines is a 63F with PMH CVA with residual L-sided hemiparesis, HTN, asthma, and L hand cellulitis presenting with bleeding to left hand. Patient was seen this morning 15 hours ago because she was having cellulitis to her L hand. Had an injury to L hand 2 weeks ago that slowly progressed to cellulitis affecting primarily her L 4th finger, presented this morning due to swelling in her finger around her 2 rings. Rings were cut off, XR taken but inconclusive 2/2 contraction in finger. Was sent home with script for Levaquin but was unable to fill because pharmacy was closed today. Woke up today with bloody spotting to sheets and pants, prompted her to come back. On Eliquis s/p CVA. Says swelling has gone down, but finger still painful. Denies F/C, headache, C/P, N/V, C/D, urinary sx. Patient says she has SOB but has asthma, has inhaler at home. Pencillin allergy. Past History - Past Medical History Allergies/Adverse Reactions: Allergies Allergy/AdvReac Type Severity Reaction Status Date / Time Penicillins Allergy Verified 07/24/19 17:48 shellfish derived Allergy Verified 07/24/19 17:48 strawberry Allergy Verified 07/24/19 17:48 Home Medications: Ambulatory Orders Acetaminophen [Mapap] 500 mg PO TID PRN 03/10/18 Apixaban [Eliquis -] 2.5 mg PO BID 03/10/18 Ascorbic Acid [Vitamin C -] 500 mg PO DAILY 03/10/18 Atorvastatin Ca [Lipitor] 10 mg PO HS 03/10/18 Calcium Carbonate [Super Calcium] 600 mg PO BID 03/10/18 Loratadine 10 mg PO DAILY 03/10/18 Melatonin 3 mg PO HS 03/10/18 Metoprolol Tartrate 25 mg PO DAILY 03/10/18 Olopatadine HCl 1 drop OP BID 03/10/18 Omeprazole 40 mg PO DAILY 03/10/18 Paroxetine HCl 30 mg PO DAILY 03/10/18 Promethazine HCl [Phenergan Liquid -] 5 ml PO DAILY PRN 03/10/18 Albuterol Sulfate Inhaler - [Ventolin Hfa Inhaler -] 1 - 2 inh PO QID PRN Mometasone Furoate 50 mcg NS DAILY 08/28/18 Ferrous Sulfate [Iron] 325 mg PO DAILY 03/14/19 Ammonium Lactate [Skin Treatment] 225 gm TP DAILY 07/24/19 Levofloxacin [Levaquin] 500 mg PO DAILY 7 Days #7 tablet 07/24/19 Risperidone 0.25 mg PO BID 07/24/19 Asthma: Yes CVA: Yes (left arm paralysis, left leg weakness) COPD: No GI Disorders: (Gerd) HTN: Yes - Surgical History Neurologic Surgery: No - Immunization History Immunization Up to Date: Yes - Suicide/Smoking/Psychosocial Hx Smoking History: Never smoked Have you smoked in the past 12 months: No If you are a former smoker, when did you quit?: 1999 Hx Alcohol Use: No Drug/Substance Use Hx: No Substance Use Type: None Review of Systems - Review of Systems Able to Perform ROS?: Yes Is the patient limited Slovak proficient: No Constitutional: No: Fever, Weakness HEENTM: No: Blurred Vision, Recent change in vision, Tinnitus, Difficulty Swallowing Respiratory: Yes: Shortness of Breath. No: Cough Cardiac (ROS): No: Chest Pain, Edema ABD/GI: No: Constipated, Diarrhea, Nausea, Vomiting : No: Burning, Dysuria, Discharge, Frequency, Flank Pain, Hematuria Musculoskeletal: No: Back Pain Integumentary: Yes: Erythema, Lesions, Other (bleeding and pain to L 4th finger) Neurological: No: Numbness, Tingling, Weakness, Dizziness Endocrine: No: Symptoms Reported Hematologic/Lymphatic: Yes: Easy Bleeding (on Eliquis). No: Symptoms Reported All Other Systems: Reviewed and Negative *Physical Exam - Vital Signs Last Vital Signs Temp Pulse Resp BP Pulse Ox 99.6 F 98 H 16 120/68 100 07/24/19 17:20 07/24/19 17:20 07/24/19 17:20 07/24/19 17:20 07/24/19 17:20 - Physical Exam General Appearance: Yes: Nourished, Appropriately Dressed. No: Apparent Distress HEENT: positive: EOMI, Normal Voice, Symmetrical, Lesions. negative: Scleral Icterus (R), Scleral Icterus (L) Neck: positive: Tender, Trachea midline, Supple. negative: Lymphadenopathy (R) , Lymphadenopathy (L) Respiratory/Chest: positive: Lungs Clear, Normal Breath Sounds. negative: Chest Tender, Respiratory Distress Cardiovascular: positive: Regular Rhythm, Regular Rate. negative: Edema Gastrointestinal/Abdominal: positive: Normal Bowel Sounds, Flat, Soft. negative : Pulsatile Mass Extremity: positive: Normal Capillary Refill, Other (L hand contracted and paralyzed at baseline, fingers 1, 2, 3, and 5 appear grossly normal with cap refill <3sec. 4th finger shows swelling distal to a circumferential indentation where rings used to be, cap refill <3 sec, painful to palpation, has ulcer in the palmar crease of MCP joint, no active bleeding.) Integumentary: positive: Normal Color, Dry, Warm Neurologic: positive: Fully Oriented, Alert, Other (L-sided hemiparesis with present sensation to LT) ED Treatment Course - LABORATORY CBC & Chemistry Diagram: 07/25/19 06:35 07/25/19 06:35 - RADIOLOGY Radiology Studies Ordered: Category Date Time Status UPPER EXTREMITY CT W/O CONTR [CT] Stat CT Scan 07/24/19 18:22 Ordered - Medications Given in the ED: ED Medications Discontinued Medications Generic Name Dose Route Start Last Admin Trade Name Jane PRN Reason Stop Dose Admin Acetaminophen 1,000 mg 07/24/19 18:29 07/24/19 18:57 Ofirmev Injection - IVPB 07/24/19 18:30 1,000 mg ONCE ONE Administration Medical Decision Making - Medical Decision Making 07/24/19 19:05 Laura Haines is a 63F with PMH CVA with residual L-sided hemiparesis, HTN, asthma, and L hand cellulitis presenting with bleeding and pain to left hand. Patient seen earlier today, labs WNL, but still has cellulitis to hand and pain. Digital swelling present only in ring finger, no active bleeding, cap refill good, no signs of ischemia to finger, but ulceration to MCP concerning for deeper cellulitis. Prior X-rays to hand inconclusive. Concerned about flexor tenosynovitis but hard to assess 2/2 paralysis of hand. Prior team concerned about Pseudomonal infection and started patient on levaquin. Will get CT L hand to evaluate for osteomyelitis. Giving Ofirmev for pain control. 1st levaquin dose given at 13:30, qd dosing means she does not need another dose today. Will be admitted for IV ABx to further control the infection. 07/24/19 21:58 CT scan performed. Getting CXR, ECG, and CMP/CBC for admission for IV Abx. Started on IV levaquin. 07/24/19 23:52 Need repeat CMP and CBC for admission but patient refuses to allow us to take blood from well-defined veins in hands because she states that it is painful. Multiple providers attempted arm deeper AC veins but unsuccessful. Re-attempting at this time. Received call from radiologist Dr. Jacobo to clarify reason for CT read. Discussed case with him, says that CT hand is low quality but sees some degenerative changes to the 1st proximal phalanx of the 4th digit of the L hand that should be considered osteomyelitis unless proven otherwise, recommends MRI to confirm with finger extension as much as possible. Will admit for IV antibiotics and MRI to assess for osteomyelitis. 07/25/19 00:40 Discussed admission to Med-Surg under Dr. Tristan with Dr. Crooks *DC/Admit/Observation/Transfer Diagnosis at time of Disposition: Cellulitis of finger of left hand, Bleeding from finger - Discharge Dispostion Decision to Admit order: Yes - Referrals - Patient Instructions - Post Discharge Activity
[2019-07-24] MEDS ORDERED: VANCOMYCIN 1,000 MG in DEXTROSE 5%-WATER - 250 ML IVPB ONE (21:05)
[2019-07-24] MEDS ORDERED: VANCOMYCIN 1 GRAM (PRE-DOCKED) 1,000 MG/250 ML BAG IVPB ONE (21:42)
[2019-07-25 00:30] LABS: BASO % 0.5 % (0-2.0); EOS % 2.5 % (0-4.5); HEMATOCRIT 27.1 % (32.4-45.2); HEMOGLOBIN 8.9 GM/dL (10.7-15.3); LYMPH % 28.9 % (8-40); MCH 29.3 pg (25.7-33.7); MCHC 32.9 g/dl (32.0-36.0); MEAN PLT VOLUME 7.6 fl (7.5-11.1); MONO % 16.4 % (3.8-10.2); NEUT % 51.7 % (42.8-82.8); PLATELET COUNT 273 K/MM3 (134-434); RBC 3.05 M/mm3 (3.60-5.2); RDW 14.6 % (11.6-15.6); WHITE BLOOD COUNT 3.8 K/mm3 (4.0-10.0)
[2019-07-25 00:59] LABS: ALBUMIN 3.2 g/dl (3.4-5.0); BILIRUBIN,TOTAL 0.3 mg/dL (0.2-1); BLOOD UREA NITROGEN 15.2 mg/dL (7-18); CALCIUM 8.4 mg/dL (8.5-10.1); CREATININE 0.6 mg/dL (0.55-1.3); POTASSIUM 3.8 mmol/L (3.5-5.1); TOT PROT 6.3 g/dl (6.4-8.2)
--- NOTE | 2019-07-25 01:35 | PN ---
Teaching Attending Note Name of Resident: Carrie Lara ATTENDING PHYSICIAN STATEMENT I saw and evaluated the patient. I reviewed the resident's note and discussed the case with the resident. I agree with the resident's findings and plan as documented. SUBJECTIVE: Patient is a 63 year old woman with PMH of Penicillin allergy, HTN, Asthma and CVA (with residual L-sided hemiparesis on eliquis) presenting to the ER with left 4th digit swelling and bleeding. She was seen here last night for similar problem. She injured her hand 3 weeks ago when she hit it against something. It subsequently became progressively more swollen. Last night, she presented to ER because the swelling made it impossible for her to remove her ring. The ring was cut off, and patient was found to have a large ulcer underneath her ring with surrounding swelling. She was started on levaquin and discharged back to [facility]. Today, after sleeping, she awoke with bleeding from the ulcer, prompting her to come to the ER. Denies fever, chills, nausea, headache or SOB. Denies purulent drainage. OBJECTIVE: Alert Vital Signs Period Temp Pulse Resp BP Sys/Stevenson Pulse Ox Last 24 Hr 99.6 F 98-102 16-20 120-133/60-68 95-100 HEENT: No Jaundice, eye redness or discharge, PERRLA, EOMI. Normocephalic, atraumatic. External ears are normal and hearing is grossly intact. No nasal discharge. Neck: Supple, nontender. No palpable adenopathy or thyromegaly. No JVD Chest: Good effort. Clear to auscultation and percussion. Heart: Regular. No S3, rub or murmur Abdomen: Not distended, soft, nontender and no HSM. No rebound or guarding. Normal bowel sounds. Ext: Peripheral pulses intact. No leg edema. Ulcer on base of left 4th finger with significant edema and serosanguinous drainage. Skin: Warm and dry. No petechiae, rash or ecchymosis. Neuro: Alert. Oriented x3. CN 2-12 grossly intact. Sensation grossly intact in all four extremities and DTR are symmetric. Psych: Appropriate mood and affect. Good insight. Home Medications Medication Instructions Recorded Acetaminophen [Mapap] 500 mg PO TID PRN 03/10/18 Apixaban [Eliquis -] 2.5 mg PO BID 03/10/18 Ascorbic Acid [Vitamin C -] 500 mg PO DAILY 03/10/18 Atorvastatin Ca [Lipitor] 10 mg PO HS 03/10/18 Calcium Carbonate [Super Calcium] 600 mg PO BID 03/10/18 Loratadine 10 mg PO DAILY 03/10/18 Melatonin 3 mg PO HS 03/10/18 Metoprolol Tartrate 25 mg PO DAILY 03/10/18 Olopatadine HCl 1 drop OP BID 03/10/18 Omeprazole 40 mg PO DAILY 03/10/18 Paroxetine HCl 30 mg PO DAILY 03/10/18 Promethazine HCl [Phenergan Liquid 5 ml PO DAILY PRN 03/10/18 -] Albuterol Sulfate Inhaler - 1 - 2 inh PO QID PRN 08/28/18 [Ventolin Hfa Inhaler -] Mometasone Furoate 50 mcg NS DAILY 08/28/18 Ferrous Sulfate [Iron] 325 mg PO DAILY 03/14/19 Ammonium Lactate [Skin Treatment] 225 gm TP DAILY 07/24/19 Levofloxacin [Levaquin] 500 mg PO DAILY 7 Days #7 tablet 07/24/19 Risperidone 0.25 mg PO BID 07/24/19 Abnormal Lab Results 07/25/19 07/25/19 00:05 00:05 WBC 3.8 L RBC 3.05 L Hgb 8.9 L Hct 27.1 L Monocytes % 16.4 H D Calcium 8.4 L Total Protein 6.3 L Albumin 3.2 L ASSESSMENT AND PLAN: 1. Left fourth finger infected wound - Will get wound swab, treat with IV Vancomycin and get imaging studies to rule out osteomyelitis. Consult ID. No acute abnormality on CXR. EKG is NSR with no significant ST-T wave changes. Will continue comprehensive care of all her comorbid conditions including Eliquis. 2. Hypoalbuminemia - Possibly due to combined effects of malnutrition and inflammation associated with comorbid chronic conditions. Will ensure adequate dietary protein intake and also consult metal fitters and machinists. 3. Anemia - Cause unclear. Will do basic anemia work up including serial stool guaiacs, reticulocyte count and iron studies. 4. Obesity Counseled on the risks associated with obesity. Will provide patient all the necessary assistance, counseling and positive reinforcement to facilitate weight loss. Consult metal fitters and machinists. 5. Hypertension - Restart suitable outpatient antihypertensive drugs when clinically appropriate. Revise regimen to ensure [id number] excellent BP control and milieu counselor patient on the injurious effects of uncontrolled hypertension. Nonpharmacologic measures to control hypertension like weight loss , salt restriction and exercise discussed. Importance of adherence to treatment regimen and attainment of normotension emphasized. 6. DVT prophylaxis - On Eliquis 7. Advance directives - Full code
[2019-07-25] MEDS ORDERED: ALBUTEROL SO4 8 GM HFA INHALER IH PRN (03:14)
[2019-07-25 03:34] VITALS: BMI 31.5
--- NOTE | 2019-07-25 05:55 | HP ---
CHIEF COMPLAINT: Swelling and erythema of the left ring finger for the past 2 days PCP: HISTORY OF PRESENT ILLNESS: This is a 63 year old female with PMH significant for CVA (resulting in Lt sided hemiparesis), HTN, and asthma. She presented to the ER from [facility] with complaints of swelling and erythema of the left ring finger for the past 2 days. She hit her left hand against her bed rail 2 weeks ago, and did not complain of any pain, bleeding, or any signs of trauma immediately after the injury. 2 days ago, she developed sudden, painful swelling in her left ring finger, and she was unable to remove the rings on that finger. She was brought to the [facility] ER, where her rings were removed and she was prescribed with oral Levaquin 500mg, and was D/Alessandro from the ER. She did not take any Levaquin at home because she was unable to have her prescription filled. She woke up the next morning to find blood on her sheets and ring finger, and returned to the [facility] ER, where she is being admitted for cellulitis. She complains of associated subjective fevers since early this afternoon, but no associated dizziness, light headedness , SOB,chest pain, palpitations, cough, nausea, vomiting, diarrhea, constipation , dysuria, urinary urgency, or hematuria. ER course was notable for: (1) Levaquin 500mg IV (2) CT Upper extremity: suspicion of osteomyelitis Recent Travel: None PAST MEDICAL HISTORY: CVA (resulting in Lt sided hemiparesis), HTN, and asthma PAST SURGICAL HISTORY: Knee surgery Lumpectomy left breast Social History: Smokin pack/week for 20 years, quit 19 years ago Alcohol: socially Drugs: none Family History: Father had HTN Allergies Penicillins Allergy (Verified 07/24/19 17:48) shellfish derived Allergy (Verified 07/24/19 17:48) strawberry Allergy (Verified 07/24/19 17:48) HOME MEDICATIONS: Home Medications Medication Instructions Recorded Acetaminophen [Mapap] 500 mg PO TID PRN 03/10/18 Apixaban [Eliquis -] 2.5 mg PO BID 03/10/18 Ascorbic Acid [Vitamin C -] 500 mg PO DAILY 03/10/18 Atorvastatin Ca [Lipitor] 10 mg PO HS 03/10/18 Calcium Carbonate [Super Calcium] 600 mg PO BID 03/10/18 Loratadine 10 mg PO DAILY 03/10/18 Melatonin 3 mg PO HS 03/10/18 Metoprolol Tartrate 25 mg PO DAILY 03/10/18 Olopatadine HCl 1 drop OP BID 03/10/18 Omeprazole 40 mg PO DAILY 03/10/18 Paroxetine HCl 30 mg PO DAILY 03/10/18 Promethazine HCl [Phenergan Liquid 5 ml PO DAILY PRN 03/10/18 -] Albuterol Sulfate Inhaler - 1 - 2 inh PO QID PRN 08/28/18 [Ventolin Hfa Inhaler -] Mometasone Furoate 50 mcg NS DAILY 08/28/18 Ferrous Sulfate [Iron] 325 mg PO DAILY 03/14/19 Ammonium Lactate [Skin Treatment] 225 gm TP DAILY 07/24/19 Levofloxacin [Levaquin] 500 mg PO DAILY 7 Days #7 tablet 07/24/19 Risperidone 0.25 mg PO BID 07/24/19 REVIEW OF SYSTEMS CONSTITUTIONAL: fever Absent: chills, diaphoresis, generalized weakness, malaise, loss of appetite, weight change HEENT: Absent: rhinorrhea, nasal congestion, throat pain, throat swelling, difficulty swallowing, mouth swelling, ear pain, eye pain, visual changes CARDIOVASCULAR: Absent: chest pain, syncope, palpitations, irregular heart rate, lightheadedness , peripheral edema RESPIRATORY: Absent: cough, shortness of breath, dyspnea with exertion, orthopnea, wheezing, stridor, hemoptysis GASTROINTESTINAL: Absent: abdominal pain, abdominal distension, nausea, vomiting, diarrhea, constipation, melena, hematochezia GENITOURINARY: Absent: dysuria, frequency, urgency, hesitancy, hematuria, flank pain, genital pain MUSCULOSKELETAL: Absent: myalgia, arthralgia, joint swelling, back pain, neck pain SKIN: Absent: rash, itching, pallor HEMATOLOGIC/IMMUNOLOGIC: Absent: easy bleeding, easy bruising, lymphadenopathy, frequent infections ENDOCRINE: Absent: unexplained weight gain, unexplained weight loss, heat intolerance, cold intolerance NEUROLOGIC: focal weakness or paresthesias Absent: headache, dizziness, unsteady gait, seizure, mental status changes, bladder or bowel incontinence PSYCHIATRIC: Absent: anxiety, depression, suicidal or homicidal ideation, hallucinations. PHYSICAL EXAMINATION Vital Signs - 24 hr 09/01/19 09/01/19 09/02/19 17:20 19:25 01:54 Temperature 99.6 F Pulse Rate 98 H Pulse Rate [ 102 H 96 H Apical] Respiratory 16 20 20 Rate Blood Pressure 120/68 Blood Pressure 133/60 130/90 [Left Arm] O2 Sat by Pulse 100 95 95 Oximetry (%) 07/25/19 07/25/19 07/25/19 01:55 03:28 03:40 Temperature 98.6 F Pulse Rate 94 H Pulse Rate [ Apical] Respiratory 20 Rate Blood Pressure 161/92 Blood Pressure [Left Arm] O2 Sat by Pulse 96 96 Oximetry (%) GENERAL: Awake, alert, and fully oriented, in no acute distress. HEAD: Normal with no signs of trauma. EYES: Pupils equal, round and reactive to light, extraocular movements intact, sclera anicteric, conjunctiva clear. No lid lag. EARS, NOSE, THROAT: Ears normal, nares patent, oropharynx clear without exudates. Moist mucous membranes. NECK: Normal range of motion, supple without lymphadenopathy, JVD, or masses. LUNGS: Breath sounds equal, clear to auscultation bilaterally. No wheezes, and no crackles. No accessory muscle use. HEART: Regular rate and rhythm, normal S1 and S2 without murmur, rub or gallop. ABDOMEN: Soft, nontender, not distended, normoactive bowel sounds, no guarding, no rebound, no masses. No hepatomegaly or splenomegaly. MUSCULOSKELETAL: Left sided hemiparesis UPPER EXTREMITIES: RE strength 4/5 sensations intact LE strength 0/5 sensation none LOWER EXTREMITIES: RE strength 3/5 sensation imparied below the knee LE strength 0/5 sensation none NEUROLOGICAL: Normal speech PSYCHIATRIC: Cooperative. Good eye contact. Appropriate mood and affect. SKIN: Warm, dry, normal turgor, no rashes or lesions noted, normal capillary refill. Laboratory Results - last 24 hr 07/25/19 07/25/19 00:05 00:05 WBC 3.8 L RBC 3.05 L Hgb 8.9 L Hct 27.1 L MCV 89.0 MCH 29.3 MCHC 32.9 RDW 14.6 Plt Count 273 MPV 7.6 Absolute Neuts (auto) 2.0 Neutrophils % 51.7 D Lymphocytes % 28.9 D Monocytes % 16.4 H D Eosinophils % 2.5 Basophils % 0.5 Nucleated RBC % 0 Sodium 140 Potassium 3.8 Chloride 106 Carbon Dioxide 27 Anion Gap 7 L BUN 15.2 Creatinine 0.6 Est GFR (CKD-EPI)AfAm 111.64 Est GFR (CKD-EPI)NonAf 96.33 Random Glucose 91 Calcium 8.4 L Total Bilirubin 0.3 AST 16 ALT 17 Alkaline Phosphatase 76 Total Protein 6.3 L Albumin 3.2 L ASSESSMENT/PLAN: 63 YO F with PMH of CVA (Lt sided hemiparesis), HTN, and asthma. She presented to the ER from [place] with complaints of swelling and erythema of the left ring finger for the past 2 days. #Cellulitis - CT Upper extremity: suspicion of osteomyelitis - Vancomycin - MRI ordered to r/o osteomyelitis - Vancomycin 1g ordered, one dose given - ID consult placed (Dr. Piña) #Hx of CVA - Cont Eliquis 2.5mg - Cont Lipitor 10mg #Hx of HTN - Cont Lopressor 25mg #Hx of asthma - Cont Ventolin inhaler PRN #FEN - Na controlled diet #DVT PE - Already on Eliquis, no Lovenox or Heparin Visit type - Emergency Visit Emergency Visit: Yes ED Registration Date: 07/24/19 Care time: The patient presented to the Emergency Department on the above date and was hospitalized for further evaluation of their emergent condition. - New Patient This patient is new to me today: Yes Date on this admission: 07/25/19 - Critical Care Critical Care patient: No ATTENDING PHYSICIAN STATEMENT I saw and evaluated the patient. I reviewed the resident's note and discussed the case with the resident. I agree with the resident's findings and plan as documented. SUBJECTIVE: OBJECTIVE: ASSESSMENT AND PLAN:
[2019-07-25 07:41] LABS: HEMATOCRIT 26.2 % (32.4-45.2); HEMOGLOBIN 8.9 GM/dL (10.7-15.3); MCH 29.9 pg (25.7-33.7); MEAN CELL VOLUME 88.1 fl (80-96); MEAN PLT VOLUME 7.6 fl (7.5-11.1); PLATELET COUNT 265 K/MM3 (134-434); RBC 2.97 M/mm3 (3.60-5.2); RDW 14.2 % (11.6-15.6); WHITE BLOOD COUNT 3.8 K/mm3 (4.0-10.0)
[2019-07-25 07:46] LABS: ALBUMIN 3.2 g/dl (3.4-5.0); BILIRUBIN,TOTAL 0.3 mg/dL (0.2-1); BLOOD UREA NITROGEN 14.1 mg/dL (7-18); CALCIUM 8.6 mg/dL (8.5-10.1); CREATININE 0.6 mg/dL (0.55-1.3); POTASSIUM 3.8 mmol/L (3.5-5.1); TOT PROT 6.1 g/dl (6.4-8.2)
--- NOTE | 2019-07-25 09:17 | EKG ---
Test Reason : Blood Pressure : / mmHG Vent. Rate : 093 BPM Atrial Rate : 093 BPM P-R Int : 134 ms QRS Dur : 074 ms QT Int : 356 ms P-R-T Axes : 053 049 053 degrees QTc Int : 442 ms NORMAL SINUS RHYTHM NORMAL ECG WHEN COMPARED WITH ECG OF 24-JUL-2019 01:25, NO SIGNIFICANT CHANGE WAS FOUND Confirmed by FANG DE LOS SANTOS MD ([id number]) on 07/25/2019 9:17:34 AM Referred By: Confirmed By:FANG DE LOS SANTOS MD
[2019-07-25] MEDS ORDERED: PT OWN MED DRAWER 7, Y5N ONE ×2 (09:34→21:01)
[2019-07-25] MEDS: APIXABAN 2.5 MG TABLET PO SCH ×2 (09:43→21:09)
[2019-07-25] MEDS: METOPROLOL TARTRATE 25 MG TABLET (FP) PO SCH (09:43)
[2019-07-25] MEDS ORDERED: VANCOMYCIN 1 GM in D5W (PRE-DOCKED) 1,000 MG/250 ML IVPB SCH (10:00)
[2019-07-25] MEDS ORDERED: PNEUMOC 13-VAL CONJ-DIP CRM/PF 0.5 ML DISP.SYRIN IM ONE (10:00)
[2019-07-25] MEDS ORDERED: VANCOMYCIN 1 GRAM (PRE-DOCKED) 1,000 MG/250 ML BAG IVPB ONE (10:00)
[2019-07-25 10:22] LABS: RETICULOCYTES 4.98 % (0.5-1.5)
[2019-07-25] MEDS: ACETAMINOPHEN 325 MG TABLET (FP) PO PRN (11:12)
--- NOTE | 2019-07-25 13:17 | PN ---
Teaching Attending Note Name of Resident: Arnold Arzola ATTENDING PHYSICIAN STATEMENT I saw and evaluated the patient. I reviewed the resident's note and discussed the case with the resident. I agree with the resident's findings and plan as documented with exceptions below. SUBJECTIVE: Patient seen and examined. left finger symptoms improved. No fevers, chills. No new complaints. OBJECTIVE: Vital Signs Period Temp Pulse Resp BP Sys/Stevenson Pulse Ox Last 24 Hr 98.2 F-99.6 F 94-107 16-20 120-161/60-96 95-100 Intake & Output 07/22/19 07/23/19 07/24/19 07/25/19 23:59 23:59 23:59 23:59 Intake Total 0 Balance 0 Weight 190 lb 189 lb 6 oz General: sitting in bed in no acute distress Chest: CTAB, limited by habitus and effort, no rales or wheezing Abdomen:soft, NT Extremities: Left hand contracture, left ring finger, indentation at site, surrounding erythema/swelling, improved tenderness per patient Neuro: AAOx3, mild left facial droop, LUE 0/5, LLE 3/5 Home Medications Medication Instructions Recorded Acetaminophen [Mapap] 500 mg PO TID PRN 03/10/18 Apixaban [Eliquis -] 2.5 mg PO BID 03/10/18 Ascorbic Acid [Vitamin C -] 500 mg PO DAILY 03/10/18 Atorvastatin Ca [Lipitor] 10 mg PO HS 03/10/18 Calcium Carbonate [Super Calcium] 600 mg PO BID 03/10/18 Loratadine 10 mg PO DAILY 03/10/18 Melatonin 3 mg PO HS 03/10/18 Metoprolol Tartrate 25 mg PO DAILY 03/10/18 Olopatadine HCl 1 drop OP BID 03/10/18 Omeprazole 40 mg PO DAILY 03/10/18 Paroxetine HCl 30 mg PO DAILY 03/10/18 Promethazine HCl [Phenergan Liquid 5 ml PO DAILY PRN 03/10/18 -] Albuterol Sulfate Inhaler - 1 - 2 inh PO QID PRN 08/28/18 [Ventolin Hfa Inhaler -] Mometasone Furoate 50 mcg NS DAILY 08/28/18 Ferrous Sulfate [Iron] 325 mg PO DAILY 03/14/19 Ammonium Lactate [Skin Treatment] 225 gm TP DAILY 07/24/19 Levofloxacin [Levaquin] 500 mg PO DAILY 7 Days #7 tablet 07/24/19 Risperidone 0.25 mg PO BID 07/24/19 Active Medications Acetaminophen (Tylenol -) 325 mg PO Q6H PRN PRN Reason: PAIN Last Admin: 07/25/19 11:12 Dose: 325 mg Albuterol Sulfate (Ventolin Hfa Inhaler -) 1 - 2 puff IH QID PRN PRN Reason: ASTHMA Apixaban (Eliquis -) 2.5 mg PO BID [facility] Last Admin: 07/25/19 09:43 Dose: 2.5 mg Ascorbic Acid (Vitamin C -) 500 mg PO DAILY [facility] Atorvastatin Calcium (Lipitor -) 10 mg PO HS [facility] Calcium Carbonate (Calcium Carbonate -) 650 mg PO BID [facility] Ferrous Sulfate (Feosol -) 325 mg PO DAILY [facility] Fluticasone Propionate (Flonase -) 2 spray NS DAILY [facility] Levofloxacin (Levaquin 500 Mg Premixed Ivpb -) 500 mg in 100 mls @ 100 mls/hr IVPB Q24H [facility] Melatonin (Melatonin) 3 mg PO HS [facility] Metoprolol Tartrate (Lopressor -) 25 mg PO DAILY [facility] Last Admin: 07/25/19 09:43 Dose: 25 mg Non-Formulary Medication (Olopatadine Hcl [Olopatadine Hcl]) 1 drop OP BID [facility] Paroxetine HCl (Paxil -) 30 mg PO DAILY [facility] Risperidone (Risperdal -) 0.25 mg PO BID [facility] Vancomycin HCl (Vancomycin (Pre-Docked)) 1,000 mg IVPB DAILY [facility]; Protocol Laboratory Results - last 24 hr 07/25/19 07/25/19 07/25/19 00:05 00:05 06:35 WBC 3.8 L 3.8 L RBC 3.05 L 2.97 L Hgb 8.9 L 8.9 L Hct 27.1 L 26.2 L MCV 89.0 88.1 MCH 29.3 29.9 MCHC 32.9 34.0 RDW 14.6 14.2 Plt Count 273 265 MPV 7.6 7.6 Absolute Neuts (auto) 2.0 Neutrophils % 51.7 D Lymphocytes % 28.9 D Monocytes % 16.4 H D Eosinophils % 2.5 Basophils % 0.5 Nucleated RBC % 0 Retic Count 4.98 H Sodium 140 Potassium 3.8 Chloride 106 Carbon Dioxide 27 Anion Gap 7 L BUN 15.2 Creatinine 0.6 Est GFR (CKD-EPI)AfAm 111.64 Est GFR (CKD-EPI)NonAf 96.33 Random Glucose 91 Calcium 8.4 L Iron TIBC Iron Saturation Unsaturated IBC Ferritin Total Bilirubin 0.3 AST 16 ALT 17 Alkaline Phosphatase 76 C-Reactive Protein Total Protein 6.3 L Albumin 3.2 L 07/25/19 06:35 WBC RBC Hgb Hct MCV MCH MCHC RDW Plt Count MPV Absolute Neuts (auto) Neutrophils % Lymphocytes % Monocytes % Eosinophils % Basophils % Nucleated RBC % Retic Count Sodium 140 Potassium 3.8 Chloride 107 Carbon Dioxide 29 Anion Gap 5 L BUN 14.1 Creatinine 0.6 Est GFR (CKD-EPI)AfAm 111.64 Est GFR (CKD-EPI)NonAf 96.33 Random Glucose 96 Calcium 8.6 Iron 24 L TIBC 255 Iron Saturation 9 L Unsaturated IBC 231 Ferritin 27.7 Total Bilirubin 0.3 AST 20 ALT 19 Alkaline Phosphatase 74 C-Reactive Protein 2.9 H Total Protein 6.1 L Albumin 3.[address] prelim results reviewed ASSESSMENT AND PLAN: 63 yof with PMhx of CVA with left hemiparesis on eliquis, HTN, Asthma, recently seen by ED with left finger swelling/bleeding when ring was cut off and sent, came back with persistent left indext finger swelling/bleeding and pain. -Left index finger cellulitis r/o osteomyelitis -CVA with Left hemiparesis/LUE contractures/severe left hand deformity -HTN -Asthma Plan: Symptoms with some improvement. Only 1 day of levaquin before came back to ED. Continue levaquin/vancomycin. Check blood cx/ESR/CRP. Unable to get MRI given severe hand deformity and unable to co-operate with the exam. Check bone scan. ID/orthopedic input. Continue Eliquis/statin/metoprolol/risperidone. DVTPPX, on eliquis Dispo pending clinical improvement. Will need PT eval and CM consult for dc planning once medical issues improve. Discussed with patient and nursing, all questions answered.
--- NOTE | 2019-07-25 16:40 | PN ---
Progress Note (short form) - Note Progress Note: Pt seen and examined. She is a 63 year old female s/p CVA and LUE paralysis, who did have a mild trauma to the left hand 2 weeks ago. Since that time her left ring finger became more swollen, red, and eventually she was diagnosed with an infection. She states it is much improved since being on antibiotics. Her baseline function of her left hand is basically zero. 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 No active motion of the ring finger, little passive motion Previous area of swelling and erythema is much improved, almost back to normal for her. No drainage, no fluid collection. CT scan Left UE done, results pending. I did a wet read, and I don't see any signs of an abscess or osteomyelitis. Imp L ring finger infection, now improving. Rec No orthopedic intervention needed, no surgery needed. Activities as tolerated Antibiotics as per ID
--- NOTE | 2019-07-25 19:25 | PN ---
Progress Note (short form) - Note Progress Note: ID CONSULT DICTATED CELLULITIS L4TH FINGER R/O OSTEOMYELITIS PCN ALLERGY CONTINUE EMPIRIC VANCOMYCIN/ LEVAQUIN
[2019-07-25] MEDS: MELATONIN 1 MG TABLET PO SCH (21:08)
[2019-07-25] MEDS: risperiDONE 0.25 MG TABLET (FP) PO SCH (21:08)
[2019-07-25] MEDS: ATORVASTATIN CA 10 MG TABLET (FP) PO SCH (21:09)
[2019-07-25] MEDS: VANCOMYCIN 1 GRAM (PRE-DOCKED) 1,000 MG/250 ML BAG IVPB SCH (21:09)
[2019-07-25] MEDS ORDERED: OLOPATADINE HCL OP SCH (22:00)
[2019-07-25] MEDS: CALCIUM CARBONATE 650 MG TABLET PO SCH (22:23)
--- NOTE | 2019-07-26 09:36 | CONS ---
DATE OF CONSULTATION: DATE OF DICTATION: 07/26/2019 HISTORY OF PRESENT ILLNESS: The patient is a 63-year-old female who was evaluated for cellulitis of the left fourth finger. According to the notes, she had developed left fourth digit swelling and bleeding after an injury approximately 3 weeks ago. She was seen in the emergency room on July 23, 2019. She was found to have marked swelling of the finger and a ring, which was present, was cut and removed. She was noted to have an ulceration on the flexor aspect of the left fourth finger. She was prescribed Levaquin and discharged home. While at home, she noted bleeding from the finger and returned to the emergency room. She was found to have diffuse swelling of the left fourth finger with erythema and bloody drainage from an ulceration on the flexor aspect of the finger. She denies any associated fever or chills. She did not notice raisa pus coming from the area. PAST MEDICAL HISTORY: Positive for stroke, asthma, hypertension. PAST SURGICAL HISTORY: She is status post lumpectomy. ALLERGIES: PENICILLIN. SOCIAL HISTORY: Resides at home, non-smoker, non-drinker. SYSTEM REVIEW: Neurologic: Positive for stroke. Cardiac: Negative chest pain or palpitations. Respiratory: Negative cough, or sputum production. Gastrointestinal: Negative vomiting, or diarrhea. Genitourinary: Negative for urinary tract infection. LABORATORY DATA: White count 3.8, 51 neutrophils, 28 lymphocytes, hematocrit 26.2, platlets 265, creatinine 0.6, sedimentation rate 55. Wound culture pending. PHYSICAL EXAMINATION: General: On exam, she was awake and alert. She is not acutely toxic-appearing. Vitals: Temperature 98.6, blood pressure 131/98, pulse 85 regular, respirations 18 per minute. HEENT: Sclera anicteric. Heart: Sounds S1, S2. Lungs: Clear. Abdomen: Soft and nontender. Extremities: Negative for edema. Examination of the left hand: There is a contracture of the left upper extremity and marked contracture of the left hand. There is an ulceration present at the base of the left fourth finger on the flexor aspect. There was diffuse swelling and erythema of the finger. No purulent drainage was noted. IMPRESSION: 1. Cellulitis, left fourth finger. 2. Rule out osteomyelitis. 3. Wound infection. 4. PENICILLIN ALLERGY. 5. Status post cerebrovascular accident. 6. Leukopenia. PLAN: Await culture results. CAT scan has been ordered. Empiric antibiotic coverage in this PENICILLIN ALLERGY patient with vancomycin and Levaquin and Surgery follow up. Will follow. Thank you for the kind referral. INDIRA ANGEL M.D. [id number]
[2019-07-26] MEDS ORDERED: PARoxetine HCL 30 MG TABLET PO SCH (10:00)
[2019-07-26] MEDS: ASCORBIC ACID 500 MG TABLET (FP) PO SCH (10:40)
[2019-07-26] MEDS ORDERED: PT OWN MED DRAWER 7, Y5N ONE ×2 (10:53→21:14)
[2019-07-26] MEDS: VANCOMYCIN 1 GRAM (PRE-DOCKED) 1,000 MG/250 ML BAG IVPB SCH ×2 (11:02→22:30)
[2019-07-26] MEDS: PAROXETINE HCL 20 MG, PAROXETINE HCL 10 MG PO SCH (11:03)
[2019-07-26] MEDS: risperiDONE 0.25 MG TABLET (FP) PO SCH ×2 (11:03→21:51)
[2019-07-26] MEDS: METOPROLOL TARTRATE 25 MG TABLET (FP) PO SCH (11:04)
[2019-07-26] MEDS: APIXABAN 2.5 MG TABLET PO SCH ×2 (11:05→21:51)
[2019-07-26] MEDS: FERROUS SO4 325 MG TABLET (FP) PO SCH (11:05)
[2019-07-26] MEDS: FLUTICASONE PROP 0.05% 16 GM NASAL SPRAY NS SCH (11:05)
[2019-07-26] MEDS: CALCIUM CARBONATE 650 MG TABLET PO SCH ×2 (11:06→21:52)
--- NOTE | 2019-07-26 12:39 | PN ---
Progress Note (short form) - Note Progress Note: Ortho Pt seen and examined - hand/finger feeling better Selected Entries 07/26/19 05:55 Temperature 98.6 F Pulse Rate 86 Respiratory 20 Rate Blood Pressure 133/88 + contracture, decr pain, no drainage a/p NTD Orthopedically stable re-consult prn d/w Dr. Reyna
--- NOTE | 2019-07-26 13:24 | PN ---
Physical Exam: SUBJECTIVE: Patient seen and examined, left hand symptoms markedly improved. OBJECTIVE: Vital Signs Period Temp Pulse Resp BP Sys/Stevenson Pulse Ox Last 24 Hr 98.0 F-98.8 F 83-90 17-20 121-133/67-98 94-94 Intake & Output 07/23/19 07/24/19 07/25/19 07/26/19 23:59 23:59 23:59 23:59 Intake Total 950 680 Balance 950 680 Weight 190 lb 189 lb 6 oz 187 lb 8 oz General: sitting in bed in no acute distress HEENT: PERRL CVS:S12 regular neck: soft, supple Chest: CTAB, limited by habitus and effort, no rales or wheezing Abdomen:soft, NT Extremities: Left hand contracture, left ring finger, indentation at site, surrounding erythema/swelling improved, non tender on exam today Neuro: AAOx3, mild left facial droop, LUE 0/5, LLE 3/5 Laboratory Results - last 24 hr 07/25/19 12:30 ESR 55 H Active Medications Generic Name Dose Route Start Last Admin Trade Name Freq PRN Reason Stop Dose Admin Acetaminophen 325 mg 07/25/19 10:54 07/25/19 11:12 Tylenol - PO 325 mg Q6H PRN Administration PAIN Albuterol Sulfate 1 - 2 puff 07/25/19 03:14 Ventolin Hfa Inhaler - IH QID PRN ASTHMA Apixaban 2.5 mg 07/25/19 10:00 07/26/19 11:05 Eliquis - PO 2.5 mg BID YUDITH Administration Ascorbic Acid 500 mg 07/26/19 10:00 07/26/19 10:40 Vitamin C - PO 500 mg DAILY YUDITH Administration Atorvastatin Calcium 10 mg 07/25/19 22:00 07/25/19 21:09 Lipitor - PO 10 mg HS YUDITH Administration Calcium Carbonate 650 mg 07/25/19 22:00 07/26/19 11:06 Calcium Carbonate - PO 650 mg BID YUDITH Administration Ferrous Sulfate 325 mg 07/26/19 10:00 07/26/19 11:05 Feosol - PO 325 mg DAILY YUDITH Administration Fluticasone Propionate 2 spray 07/26/19 10:00 07/26/19 11:05 Flonase - NS 2 sprays DAILY YUDITH Administration Vancomycin HCl 1,000 mg in 250 mls @ 166.667 mls/hr 07/25/19 22:00 07/26/19 11:02 Vancomycin (Pre-Docked) IVPB 166.667 mls/hr Q12H YUDITH Administration Protocol Levofloxacin 500 mg in 100 mls @ 100 mls/hr 07/25/19 22:00 07/25/19 21:09 Levaquin 500 Mg Premixed Ivpb - IVPB 100 mls/hr Q24H YUDITH Administration Melatonin 3 mg 07/25/19 22:00 07/25/19 21:08 Melatonin PO 3 mg HS YUDITH Administration Metoprolol Tartrate 25 mg 07/25/19 10:00 07/26/19 11:04 Lopressor - PO 25 mg DAILY YUDITH Administration Non-Formulary Medication 1 drop 07/25/19 22:00 Olopatadine Hcl [Olopatadine Hcl] OP BID [facility]UDITH Paroxetine HCl 20 mg/ 30 mg 07/26/19 10:00 07/26/19 11:03 Paroxetine HCl 10 mg PO 30 mg DAILY YUDITH Administration Risperidone 0.25 mg 07/25/19 22:00 07/26/19 11:03 Risperdal - PO 0.25 mg BID YUDITH Administration Home Medications Medication Instructions Recorded Acetaminophen [Mapap] 500 mg PO TID PRN 03/10/18 Apixaban [Eliquis -] 2.5 mg PO BID 03/10/18 Ascorbic Acid [Vitamin C -] 500 mg PO DAILY 03/10/18 Atorvastatin Ca [Lipitor] 10 mg PO HS 03/10/18 Calcium Carbonate [Super Calcium] 600 mg PO BID 03/10/18 Loratadine 10 mg PO DAILY 03/10/18 Melatonin 3 mg PO HS 03/10/18 Metoprolol Tartrate 25 mg PO DAILY 03/10/18 Olopatadine HCl 1 drop OP BID 03/10/18 Omeprazole 40 mg PO DAILY 03/10/18 Paroxetine HCl 30 mg PO DAILY 03/10/18 Promethazine HCl [Phenergan Liquid 5 ml PO DAILY PRN 03/10/18 -] Albuterol Sulfate Inhaler - 1 - 2 inh PO QID PRN 08/28/18 [Ventolin Hfa Inhaler -] Mometasone Furoate 50 mcg NS DAILY 08/28/18 Ferrous Sulfate [Iron] 325 mg PO DAILY 03/14/19 Ammonium Lactate [Skin Treatment] 225 gm TP DAILY 07/24/19 Levofloxacin [Levaquin] 500 mg PO DAILY 7 Days #7 tablet 07/24/19 Risperidone 0.25 mg PO BID 07/24/19 ASSESSMENT/PLAN: 63 yof with PMhx of CVA with left hemiparesis on eliquis, HTN, Asthma, recently seen by ED with left finger swelling/bleeding when ring was cut off and sent, came back with persistent left indext finger swelling/bleeding and pain. -Left index finger cellulitis r/o osteomyelitis -CVA with Left hemiparesis/LUE contractures/severe left hand deformity -HTN -Asthma Plan: Symptoms improved Levaquin/vancomycin day 2. Blood cx neg so far ESR/CRP elevated. Unable to get MRI given severe hand deformity and unable to co-operate with the exam. Follow up bone scan. ID/orthopedic input noted. Continue Eliquis/statin/metoprolol/risperidone. DVTPPX, on eliquis PT eval. Dispo with/without IV abx pending bone scan in 24-48 hours if disposition arranged. Discussed with patient and nursing, all questions answered. Visit type - Emergency Visit Emergency Visit: Yes ED Registration Date: 07/24/19 Care time: The patient presented to the Emergency Department on the above date and was hospitalized for further evaluation of their emergent condition. - New Patient This patient is new to me today: No - Critical Care Critical Care patient: No - Discharge Referral Referred to [facility] Med [facility] No
--- NOTE | 2019-07-26 17:49 | PN ---
Progress Note, Physician History of Present Illness: NO C/O FINGER PAIN NO F/C UNABLE TO HAVE BONE SCAN DUE TO DEFORMITY OF L HAND CT NO OM ? FRACTURE 4TH PROX PHALANGE - Current Medication List Current Medications: Active Medications Acetaminophen (Tylenol -) 325 mg PO Q6H PRN PRN Reason: PAIN Last Admin: 07/25/19 11:12 Dose: 325 mg Albuterol Sulfate (Ventolin Hfa Inhaler -) 1 - 2 puff IH QID PRN PRN Reason: ASTHMA Apixaban (Eliquis -) 2.5 mg PO BID [facility] Last Admin: 07/26/19 11:05 Dose: 2.5 mg Ascorbic Acid (Vitamin C -) 500 mg PO DAILY [facility] Last Admin: 07/26/19 10:40 Dose: 500 mg Atorvastatin Calcium (Lipitor -) 10 mg PO HS [facility] Last Admin: 07/25/19 21:09 Dose: 10 mg Calcium Carbonate (Calcium Carbonate -) 650 mg PO BID [facility] Last Admin: 07/26/19 11:06 Dose: 650 mg Ferrous Sulfate (Feosol -) 325 mg PO DAILY [facility] Last Admin: 07/26/19 11:05 Dose: 325 mg Fluticasone Propionate (Flonase -) 2 spray NS DAILY [facility] Last Admin: 07/26/19 11:05 Dose: 2 sprays Vancomycin HCl (Vancomycin (Pre-Docked)) 1,000 mg in 250 mls @ 166.667 mls/hr IVPB Q12H [facility]; Protocol Last Admin: 07/26/19 11:02 Dose: 166.667 mls/hr Levofloxacin (Levaquin 500 Mg Premixed Ivpb -) 500 mg in 100 mls @ 100 mls/hr IVPB Q24H [facility] Last Admin: 07/25/19 21:09 Dose: 100 mls/hr Melatonin (Melatonin) 3 mg PO HS [facility] Last Admin: 07/25/19 21:08 Dose: 3 mg Metoprolol Tartrate (Lopressor -) 25 mg PO DAILY [facility] Last Admin: 07/26/19 11:04 Dose: 25 mg Non-Formulary Medication (Olopatadine Hcl [Olopatadine Hcl]) 1 drop OP BID [facility] Paroxetine HCl 20 mg/ (Paroxetine HCl 10 mg) 30 mg PO DAILY [facility] Last Admin: 07/26/19 11:03 Dose: 30 mg Pneumococcal 13-Valent Conj Vacc (Prevnar 13 Syringe -) 0.5 ml IM .ONCE ONE Stop: 07/26/19 15:36 Risperidone (Risperdal -) 0.25 mg PO BID [facility] Last Admin: 07/26/19 11:03 Dose: 0.25 mg - Objective Vital Signs: Vital Signs Temperature 99.3 F 07/26/19 14:27 Pulse Rate 77 07/26/19 14:27 Respiratory Rate 18 07/26/19 09:00 Blood Pressure 121/73 07/26/19 09:00 O2 Sat by Pulse Oximetry (%) 94 L 07/26/19 09:00 Constitutional: Yes: No Distress Cardiovascular: Yes: Regular Rate and Rhythm, S1, S2 Respiratory: Yes: Diminished Gastrointestinal: Yes: Normal Bowel Sounds, Soft. No: Tenderness Extremities: Yes: Other (ERYTHEMA/ SWELLING L 4TH FINGER MUCH IMPROVED NO WOUND DRAINAGE) Labs: CBC, BMP 07/25/19 06:35 07/25/19 06:35 Assessment/Plan CELLULITIS L 4TH DIGIT IMPROVED LACERATION ? FRACTURE 4TH DIGIT PO ANTIBIOTICS AM
[2019-07-26] MEDS ORDERED: PNEUMOC 13-VAL CONJ-DIP CRM/PF 0.5 ML DISP.SYRIN IM ONE (19:00)
[2019-07-26] MEDS: ATORVASTATIN CA 10 MG TABLET (FP) PO SCH (21:51)
[2019-07-26] MEDS: MELATONIN 1 MG TABLET PO SCH (21:52)
[2019-07-27 08:04] LABS: BASO % 0.7 % (0-2.0); EOS % 4.9 % (0-4.5); HEMATOCRIT 27.8 % (32.4-45.2); HEMOGLOBIN 9.4 GM/dL (10.7-15.3); LYMPH % 19.3 % (8-40); MCH 29.7 pg (25.7-33.7); MCHC 33.8 g/dl (32.0-36.0); MEAN CELL VOLUME 87.9 fl (80-96); MEAN PLT VOLUME 7.9 fl (7.5-11.1); MONO % 10.4 % (3.8-10.2); NEUT % 64.7 % (42.8-82.8); PLATELET COUNT 288 K/MM3 (134-434); RBC 3.16 M/mm3 (3.60-5.2); RDW 14.4 % (11.6-15.6); WHITE BLOOD COUNT 4.9 K/mm3 (4.0-10.0)
[2019-07-27 08:14] LABS: BLOOD UREA NITROGEN 15.8 mg/dL (7-18); CALCIUM 8.6 mg/dL (8.5-10.1); CREATININE 0.6 mg/dL (0.55-1.3)
[2019-07-27] MEDS ORDERED: PT OWN MED DRAWER 7, Y5N ONE ×2 (09:49→20:53)
--- NOTE | 2019-07-27 10:52 | PN ---
Progress Note, Physician History of Present Illness: AWAKE, ALERT SEATED IN BED NO C/O FINGER PAIN NO F/C UNABLE TO HAVE BONE SCAN DUE TO DEFORMITY OF L HAND CT NO OM ? FRACTURE 4TH PROX PHALANX - Current Medication List Current Medications: Active Medications Acetaminophen (Tylenol -) 325 mg PO Q6H PRN PRN Reason: PAIN Last Admin: 07/25/19 11:12 Dose: 325 mg Albuterol Sulfate (Ventolin Hfa Inhaler -) 1 - 2 puff IH QID PRN PRN Reason: ASTHMA Apixaban (Eliquis -) 2.5 mg PO BID [facility] Last Admin: 07/26/19 21:51 Dose: 2.5 mg Ascorbic Acid (Vitamin C -) 500 mg PO DAILY [facility] Last Admin: 07/26/19 10:40 Dose: 500 mg Atorvastatin Calcium (Lipitor -) 10 mg PO HS [facility] Last Admin: 07/26/19 21:51 Dose: 10 mg Calcium Carbonate (Calcium Carbonate -) 650 mg PO BID [facility] Last Admin: 07/26/19 21:52 Dose: 650 mg Ferrous Sulfate (Feosol -) 325 mg PO DAILY [facility] Last Admin: 07/26/19 11:05 Dose: 325 mg Fluticasone Propionate (Flonase -) 2 spray NS DAILY [facility] Last Admin: 07/26/19 11:05 Dose: 2 sprays Vancomycin HCl (Vancomycin (Pre-Docked)) 1,000 mg in 250 mls @ 166.667 mls/hr IVPB Q12H [facility]; Protocol Last Admin: 07/26/19 22:30 Dose: 166.667 mls/hr Levofloxacin (Levaquin 500 Mg Premixed Ivpb -) 500 mg in 100 mls @ 100 mls/hr IVPB Q24H [facility] Last Admin: 07/26/19 21:51 Dose: 100 mls/hr Melatonin (Melatonin) 3 mg PO HS [facility] Last Admin: 07/26/19 21:52 Dose: 3 mg Metoprolol Tartrate (Lopressor -) 25 mg PO DAILY [facility] Last Admin: 07/26/19 11:04 Dose: 25 mg Non-Formulary Medication (Olopatadine Hcl [Olopatadine Hcl]) 1 drop OP BID [facility] Paroxetine HCl 20 mg/ (Paroxetine HCl 10 mg) 30 mg PO DAILY [facility] Last Admin: 07/26/19 11:03 Dose: 30 mg Risperidone (Risperdal -) 0.25 mg PO BID [facility] Last Admin: 07/26/19 21:51 Dose: 0.25 mg - Objective Vital Signs: Vital Signs Temperature 98.1 F 07/27/19 05:00 Pulse Rate 75 07/27/19 05:00 Respiratory Rate 20 07/26/19 22:00 Blood Pressure 133/69 07/27/19 05:00 O2 Sat by Pulse Oximetry (%) 94 L 07/26/19 22:00 Constitutional: Yes: No Distress Cardiovascular: Yes: Regular Rate and Rhythm, S1, S2 Respiratory: Yes: CTA Bilaterally Gastrointestinal: Yes: Normal Bowel Sounds, Soft. No: Tenderness Extremities: Yes: Other (L HAND CONTRACTED; SWELLING/ERYTHEMA L 4TH DIGIT NEARLY RESOLVED) Labs: CBC, BMP 07/27/19 06:35 07/27/19 06:35 Assessment/Plan CELLULITIS L 4TH DIGIT IMPROVED LACERATION ? FRACTURE 4TH DIGIT PO BACTRIM DS BID X 7D
[2019-07-27] MEDS: ACETAMINOPHEN 325 MG TABLET (FP) PO PRN (11:25)
[2019-07-27] MEDS: FERROUS SO4 325 MG TABLET (FP) PO SCH (11:25)
[2019-07-27] MEDS: METOPROLOL TARTRATE 25 MG TABLET (FP) PO SCH (11:26)
[2019-07-27] MEDS: APIXABAN 2.5 MG TABLET PO SCH ×2 (11:26→21:19)
[2019-07-27] MEDS: risperiDONE 0.25 MG TABLET (FP) PO SCH ×2 (11:27→21:19)
[2019-07-27] MEDS: FLUTICASONE PROP 0.05% 16 GM NASAL SPRAY NS SCH (11:27)
[2019-07-27] MEDS: PAROXETINE HCL 20 MG, PAROXETINE HCL 10 MG PO SCH (11:27)
[2019-07-27] MEDS: ASCORBIC ACID 500 MG TABLET (FP) PO SCH (11:28)
[2019-07-27] MEDS: CALCIUM CARBONATE 650 MG TABLET PO SCH ×2 (11:28→22:34)
[2019-07-27] MEDS: SULFAMETHOXAZOLE/TRIMETHOPRIM 800MG/160MG D.S. TABLET PO SCH ×2 (11:28→21:19)
[2019-07-27] MEDS: VANCOMYCIN 1 GRAM (PRE-DOCKED) 1,000 MG/250 ML BAG IVPB SCH (12:48)
--- NOTE | 2019-07-27 13:34 | PN ---
Teaching Attending Note Name of Resident: Arnold Arzola ATTENDING PHYSICIAN STATEMENT I saw and evaluated the patient. I reviewed the resident's note and discussed the case with the resident. I agree with the resident's findings and plan as documented. Seen and examined; please refer to resident note for further historical information. She is doing well this AM; changed to PO abx and clear for DC with followup with PCP and ID. Will complete 7 days PO Bactrim, followup CBC BMP ESR/CRP as OP. VS, labs, imaging reviewed NAD, AAO, resting in bed NC AT EOMI PERRLA RRR s1/2 NT ND +BS CN2-12 wnl, no fnd Chronic deformaty noted; no purulent drainage, etc. Normal mood, appropriate behavior ASSESSMENT AND PLAN: Patient presents for suspected cellulitis of the L-hand with OM being r/o per CT (couldn't do bone scan given deformaties). She is hemodynamically stable and afebrile. ID saw her and changed her to PO Bactrim and she will complete a 7 day course of this. She will me monitored while on medication. Followup with PCP 3-5 days and ID 1-2 weeks. She was seen by orthopedics (Dr. Reyna) for ? fracture; he states in his consult that there is no indiction for acute orthopedic intervention and she may followup with them PRN. She has a history of hemoparesis, HTN, etc.; no medication changes were made for ay of her chronic conditions and she may followup with her OP providers as needed for this. Full Code Resume prior diet and activity 45 minutes taken in preparing this DC
--- NOTE | 2019-07-27 16:40 | DS ---
Physical Exam: SUBJECTIVE: Patient seen and examined at bedside. No acute events. Agrees with DC plan; explained regarding red flag symptoms, instructions for followup, and changes at length. OBJECTIVE: Vital Signs Period Temp Pulse Resp BP Sys/Stevenson Pulse Ox Last 24 Hr 98.1 F-98.8 F 75-93 17-21 108-133/64-70 94-95 PHYSICAL EXAM Gen: AAOx3, NAD HEENT: NCAT, EOMI Neck: supple, no jvd Cardio: rrr, normal s1s2, no mrg Pulm: cta b/l Abd: soft, nontender, nondistended Ext: Contracted LUE. L 2nd finger with residual site of infection. 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 She was treated with IV ABx, which were switched by ID to PO. She will complete a 7 day PO course of Bactrim. The patient had CVA with Left hemiparesis/LUE contractures/severe left hand deformity in the past. Her HTN and Asthma were treated with home meds. Minutes to complete discharge: 30 Discharge Summary Reason For Visit: CELLULITIS OF FINGERS OF LET HAND Current Active Problems Bleeding from finger (Acute) Cellulitis of finger of left hand (Acute) Condition: Good - Instructions Diet, Activity, Other Instructions: You were in the hospital for cellulitis. You need to follow up with the following doctors: Primary care in 3 days to have labs drawn. Check CBC, BMP, ESR, CRP in [address] Alvarado, Infectious diseases, Dr. Reyna, Orthopedics You are being sent home with the following medication: Bactrim DS 1 tablet twice daily for 7 days. Continue taking your other medications as before. If your symptoms get worse, return to the Emergency Department. Referrals: Edgardo Alvarado MD [Staff Physician] - Roberth Reyna MD [Staff Physician] - Disposition: HOME - Home Medications Comprehensive Discharge Medication List: Ambulatory Orders Acetaminophen [Mapap] 500 mg PO TID PRN 03/10/18 Apixaban [Eliquis -] 2.5 mg PO BID 03/10/18 Ascorbic Acid [Vitamin C -] 500 mg PO DAILY 03/10/18 Atorvastatin Ca [Lipitor] 10 mg PO HS 03/10/18 Calcium Carbonate [Super Calcium] 600 mg PO BID 03/10/18 Loratadine 10 mg PO DAILY 03/10/18 Melatonin 3 mg PO HS 03/10/18 Metoprolol Tartrate 25 mg PO DAILY 03/10/18 Olopatadine HCl 1 drop OP BID 03/10/18 Omeprazole 40 mg PO DAILY 03/10/18 Paroxetine HCl 30 mg PO DAILY 03/10/18 Promethazine HCl [Phenergan Plain 6.25 MG/5 ML -] 5 ml PO DAILY PRN 03/10/18 Albuterol Sulfate Inhaler - [Ventolin HFA Inhaler -] 1 - 2 inh PO QID PRN Mometasone Furoate 50 mcg NS DAILY 08/28/18 Ferrous Sulfate [Iron] 325 mg PO DAILY 03/14/19 Ammonium Lactate [Skin Treatment] 225 gm TP DAILY 07/24/19 Levofloxacin [Levaquin] 500 mg PO DAILY 7 Days #7 tablet 07/24/19 Risperidone 0.25 mg PO BID 07/24/19 Sulfamethoxazole/Trimethoprim [Bactrim DS -] 1 each PO BID #14 tablet 07/27/19 This patient is new to me today: No Emergency Visit: No Critical Care patient: No - Discharge Referral Referred to [facility] No ATTENDING PHYSICIAN STATEMENT I saw and evaluated the patient. I reviewed the resident's note and discussed the case with the resident. I agree with the resident's findings and plan as documented. SUBJECTIVE: OBJECTIVE: ASSESSMENT AND PLAN:
[2019-07-27] MEDS: MELATONIN 1 MG TABLET PO SCH (21:19)
[2019-07-27] MEDS: ATORVASTATIN CA 10 MG TABLET (FP) PO SCH (21:19)
[2019-07-28 06:04] VITALS: TEMP 98.3
--- NOTE | 2019-07-28 09:57 | PN ---
Teaching Attending Note Name of Resident: Arnold Arzola ATTENDING PHYSICIAN STATEMENT I saw and evaluated the patient. I reviewed the resident's note and discussed the case with the resident. I agree with the resident's findings and plan as documented. Transportation was unable to be arranged for patient; she is being sent back to facility today. Paperwork being completed. No changes, no new complaints. ASSESSMENT AND PLAN:
[2019-07-28] MEDS: risperiDONE 0.25 MG TABLET (FP) PO SCH (10:30)
[2019-07-28] MEDS: PAROXETINE HCL 20 MG, PAROXETINE HCL 10 MG PO SCH (10:30)
[2019-07-28] MEDS: METOPROLOL TARTRATE 25 MG TABLET (FP) PO SCH (10:30)
[2019-07-28] MEDS: ASCORBIC ACID 500 MG TABLET (FP) PO SCH (10:30)
[2019-07-28] MEDS: FERROUS SO4 325 MG TABLET (FP) PO SCH (10:31)
[2019-07-28] MEDS: APIXABAN 2.5 MG TABLET PO SCH (10:31)
[2019-07-28] MEDS: SULFAMETHOXAZOLE/TRIMETHOPRIM 800MG/160MG D.S. TABLET PO SCH (10:31)
[2019-07-28] MEDS: CALCIUM CARBONATE 650 MG TABLET PO SCH (10:31)
[2019-07-28] MEDS: FLUTICASONE PROP 0.05% 16 GM NASAL SPRAY NS SCH (10:37)
[2019-07-28 12:02] VITALS: BP 115/76; PULSE 90
== END 2019-07-28 18:04 | DRG 603 ==
LOC: JER 17:11 → JERBED 21:59 → J6S 07-25 03:26
PROVIDERS: ADMIT Internal Medicine; ATTEND Internal Medicine
DX: L03.012 Cellulitis of left finger (principal); G81.94 Hemiplegia, unspecified affecting left nondominant side; L98.498 Non-pressure chronic ulcer of skin of other sites with other specified severity; I10 Essential (primary) hypertension; J45.909 Unspecified asthma, uncomplicated; K21.9 Gastro-esophageal reflux disease without esophagitis; D64.9 Anemia, unspecified; E66.9 Obesity, unspecified; Z68.31 Body mass index [BMI] 31.0-31.9, adult; E88.09 Other disorders of plasma-protein metabolism, not elsewhere classified; R29.810 Facial weakness; Z88.0 Allergy status to penicillin; M21.942 Unspecified acquired deformity of hand, left hand
CPT/HCPCS: 36415; 71045-TC-FY; 73130-TC-LT-FY; 73200-TC-RT; 80048; 80053; 82728; 83540; 83550; 85025; 85027; 85044; 85610; 85651; 85730; 86140; 87040; 87070; 87077; 87186; 87205; 93005; 93010; 97116-GP; 97162-GP; 99283-25; 99284-25; J0131